=== PATIENT | male | born 1985 ===

== ENCOUNTER 2025-06-25 14:14 | Inpatient (IN) | payer MEDICAID, OTHER, SELFPAY ==
--- OUTSIDE RECORDS SUMMARY | 2025-06-25 03:47 | XMS_ITS | Encounter Summary ---
Author Organization [facility] Address [address] [place] [id number] Care Team Providers Care Loan Processing Supervisor Name Role Phone Pcp, No Primary Care Provider Unavailabl e Reason for Visit * Reason Comments Psychiatric Evaluation Encounter Details Date Type Department Care Team (Latest Contact Info) Description 06/25/2025 3:47 AM EDT - 06/25/2025 12:10 PM EDT Hospital Encounter [address] [id number] Deyvi Cifuentes MD [address] [place] [address] [phone] Suicidal ideations Discharge Disposition: Psychiatric Hospital other than [facility] Social History Tobacco Use Types Packs/Day Years Used Date Smoking Tobacco: Every Day Cigarettes Smokeless Tobacco: Never Tobacco Cessation:Ready to Q uit: Not Asked; Counseling Given: Not Answered Sex and Gender Information Value Date Recorded Sex Assigned at Male 06/25/2025 3:39 AM EDT Legal Sex Male 3:23 AM EDT Gender Identity Male 06/25/2025 3:39 AM EDT Sexual Orientation Straight 06/25/2025 3 :43 AM EDT Travel History Travel Start Travel End [place] 05/25/2025 06/25/2025 documented as of this encounter Last Filed Vital Signs Vital Sign Reading Time Taken Comments Blood Pressure 120/77 06/25/2025 10:44 AM EDT Pulse 91 06/25/2025 10:44 AM EDT Temperature 36.7 C (98 F) 06/25/2025 3:26 AM EDT Respiratory Rate 18 06/25/2025 6:06 AM EDT Oxygen Saturation 95% 06/25/2025 10:44 AM EDT Inhaled Oxygen Concentration - - Weight 81.6 kg (180 lb) 06/25/2025 6:06 AM EDT Height 172.7 cm (5' 8 ) 06/25/2025 6:06 AM EDT Body Mass Index 27.37 06/25/2025 6:06 AM EDT documented in this encounter Progress Notes * Simin Teixeira - 06/25/2025 10:54 AM EDT [facility] Follow Up Note Patient Name: Nikita Corbin Age: 39 y.o. Reason for Note: Faxed EKG over to Mikey @ [phone] Plan: 06/25/2025 @ 10:54 AM Simin Teixeira * Simin Teixeira - 06/25/2025 10:18 AM EDT PSYCHIATRIC FACILITY TRANSFER NOTIFICATION FORM Type of Placement: Voluntary NO Involuntary YES Section 12 Needed YES Inpatient Level of Care (check one): X? Inpatient Psych ?Med/Psych ?Cori-Psych ? Inpatient Dual Diagnosis ?ACCS ? [facility] ?Other Facility Name: [facility] Address: [address] [place] [address] Blemish Remover: ADMISSIONS Accepting MD: ASTRID JOLLEY Date/Time of Arrival: 06/25/25 2:00PM PATIENT Notified: ?X Yes: ? No (explain): Family / Legal Guardian / Health Care Proxy Notified: ? Yes (name of person/s contacted): X? No (explain): ANGELA signed with accepting facility ([facility] patients ONLY): ? Yes ([facility] Patient) ?x No (NOT a [facility] Patient) Additional Information / Instruction SIMIN TEIXEIRA NO AUTH NEEDED [facility] FACILITY WILL CALL TO DO N2N documented in this encounter Consult Notes * AAMIR Sharp - 06/25/2025 5:45 AM EDTAssociated Order(s): CONSULT TO MENTAL HEALTH ASSESSMENT Referred by: ED physician Chief Complaint (Reason for visit): psychiatric assessment Intervention Started: 4:30 am Intervention Ended: 4:50 am Telehealth: Yes If yes, The patient was educated on the option to have a visit via audio and video. The patient requested to have a visit and consented to the service. I then evaluated the patient via audio and video using [employer], and the following findings are documented throughout this note. Patient consents to telehealth: Yes Start time: 4:30 am End time: 4:50 am Patient location: [facility] Provider location: remote A consult was placed to assess for SI. Chart was reviewed and the patient was identified by name and . Reviewed confidentiality and limits to confidentiality prior to evaluation. Plan Disposition plan: Involuntary inpatient psychiatric treatment Psychosocial History Nikita Corbin is a 39 y.o. male who presented to the ED For SI, unknown to social work. Marine Service Station Attendant met with pt at bedside, identified pt by name and . Pt reports that he is suicidal, depressed, hopeless, not motivated, difficulty getting out of bed to complete tasks. He reports that he recently moved from [place] to [place] for work, when asked what he does for work, pt reported insurance. He reports having a plan to complete suicide but did not disclose. He reports past hx of suicide attempt, previous inpatient psychiatric admission. He denied HI/AH/VH, reports he last took his psychiatric medications 1 week ago, does not have any outpt. Mental health providers in [place]. He reports poor sleep, good appetite, anxious, chest tightness, panic attacks. Positive for: SI, depression, anxiety, sleep change, hopeless Negative for: naveed, psychosis, panic, delusions, appetite change, homicidal ideation, and thought disorder Collateral contacts: No collateral contacted Depression Screening PHQ-9 [Not at all (0) Several days (1) More than half the days (2) Nearly every day (3)] Little interest or pleasure in doing things: 3 Feeling down, depressed, or hopeless: 3 Trouble falling or staying asleep, or sleeping too much: 3 Feeling tired or having little energy: 0 Poor appetite or overeatin Feeling bad about yourself - or that you are a failure or have let yourself or your family down: 0 Trouble concentrating on things, such as reading the newspaper or watching television: 1 Moving or speaking so slowly that other people could have noticed. Or the opposite - being so fidgety or restless that you have been moving around a lot more than usual: 0 Thoughts that you would be better off , or of hurting yourself in some way: 3 PHQ-9 Total Score: 13 0 - 4: None to Minimal Depression 5 - 9: Mild Depression 10 - 14: Moderate Depression 15 - 19: Moderately Severe Depression 20 - 27: Severe Depression Anxiety Screening AYLEEN 7 Over the last 2 weeks, how often have you been bothered by the following problems? [Not at all (0) Several days (1) More than half the days (2) Nearly every day (3)] Feeling nervous, anxious or on edge 3 Not being able to stop or control worrying 0 Worrying too much about different things 0 Trouble relaxing 0 Being so restless that it is hard to sit still 0 Becoming easily annoyed or irritable 0 Feeling afraid as if something awful might happen 0 AYLEEN-7 Total Score: 3 0 - 4: None to Minimal Anxiety 5 - 9: Mild Anxiety 10 - 14: Moderate Anxiety 15 - 21: Severe Anxiety Past Psychiatric History Current treatment providers: No History of inpatient psychiatric hospitalizations: Yes History of suicide attempts/self-injurious behavior: Yes History of violence: No Access to weapons: No History of post- depression No Substance Use History and Assessment Denied substance use Family Psychiatric History: noncontributory Developmental/Social History Marital status: single Living arrangements: alone Support system: family Employment status: employed Source of income: employment Education level: unknown Healthcare access/barriers: denies ADLS: independent IADLS: independent HCP: No Guardian: No Legal history:No history:No Trauma history: No Mental Status Exam Appearance: alert, in no acute distress, and age appropriate well appearing, well-hydrated, well nourished Behavior: guarded Consciousness/Orientation: oriented to time, place, person, and reason for visit Eye contact: mainly direct Motor activity: no psychomotor agitation Mood: depressed Affect: full-range and appropriate Speechnormal rate, tone and rhythm and coherent speech Thought process: normal, linear, and logical Thought content: suicidal Perception (hallucinations): denies Delusions: none reported Suicidal/Homicidal Ideation: suicidal ideation with plan and intent, no homicidal ideation Concentration/attention: good Memory: recent and remote memory intact Intelligence/fund of knowledge: appears average Impulsivity: good impulse control Reliability: fair historian Insight: good Judgment: unimpaired Psychological Risk Assessment Current Risk Behavior: Description: Suicidal Thoughts/Ideation/plan/means/intent:Description: Ideation, Plan, Means, and Intent History of Risk Behavior or Harmful Acts to Self or Others: Yes Risk and protective factors:hx of suicide attempt Impression/Formulation Pt is a 39yo male who presented to the ED with report of SI. Pt endorsed depression, SI with plan; involuntary inpatient psychiatric treatment recommended. Diagnosis: F33.2 Major Depressive Disorder, Severe Therapy plan: Target symptoms: depression Goals of therapy: mood stabilization Patients capacity to participate and benefit from therapy: capable Estimated duration of treatment/number of sessions: inpatient psychiatric tx Treatment is expected to improve the health status and/or functioning of the patient. Yes Does pt meet CCS level or care, and if not why?:N/A; SI with plan AAMIR Sharp 06/25/2025 @ 5:45 AM documented in this encounter ED Notes * Umu Fu RN - 06/25/2025 12:08 PM EDT Report to [facility] for transport of thIS patient to [place]. Patient exits on stretcher for discharge * Umu Fu RN - 06/25/2025 11:47 AM EDT Nurse to nurse with Natalie from [place] * Umu Fu RN - 06/25/2025 11:31 AM EDT PFS in to see patient * Umu Fu RN - 06/25/2025 10:27 AM EDT electronic lab technician in for EKG * Umu Fu RN - 06/25/2025 10:24 AM EDT PT ACCEPTED TO [facility] FOR 2PM * Umu Fu RN - 06/25/2025 8:31 AM EDT Breakfast provided * Umu Fu RN - 06/25/2025 8:17 AM EDT Patient sleeping * Matheus Davis RN - 06/25/2025 5:42 AM EDT Requesting a snack and something to sleep. * Matheus Davis RN - 06/25/2025 5:15 AM EDT Patient ambulated to [facility] in paper scrubs.patient alert oriented x 4. Stating I'm in pain,my back,my knee . Encouraged patient to give the tylenol he received right before coming onto the unit a chance.encouraged the patch that was ordered but patient declined. Requesting will I be getting my medications and can I have something to eat ? 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 Patient unable to remember his doctors name, number or the medications names.Provided with boxed sandwich and beverage. * Nikki Ambrosio RN - 06/25/2025 4:28 AM EDT SW evaluating pt via Teams * Deyvi Cifuentes MD - 06/25/2025 3:54 AM EDT Service Date: ED Arrival Date 06/25/25 Chief Complaint Chief Complaint Patient presents with Psychiatric Evaluation HPI Pt with depression and suicidal thoughts x 4 days. The history is provided by the patient. Mental Health Problem Presenting symptoms: depression and suicidal thoughts Degree of incapacity (severity): Moderate Onset quality: Gradual Duration: 4 days Timing: Constant Progression: Worsening Chronicity: Recurrent Context: noncompliance and stressful life event Context: not alcohol use, not drug abuse, not medication and not recent medication change Treatment compliance: Most of the time Time since last psychoactive medication taken: 5 days Relieved by: nothing tried Worsened by: nothing tried Ineffective treatments: None tried Associated symptoms: anxiety Associated symptoms: no abdominal pain, no anhedonia, no appetite change, no chest pain, no decreased need for sleep, not distractible, no euphoric mood, no fatigue, no feelings of worthlessness, no headaches, no hypersomnia, no hyperventilation, no insomnia, no irritability, no poor judgment, no psychomotor retardation, no school problems and no weight change Risk factors: hx of mental illness Risk factors: no family hx of mental illness, no family violence, no hx of suicide attempts, no neurological disease and no recent psychiatric admission ROS Review of Systems Constitutional: Negative for appetite change, fatigue and irritability. Cardiovascular: Negative for chest pain. Gastrointestinal: Negative for abdominal pain. Neurological: Negative for headaches. Psychiatric/Behavioral: Positive for suicidal ideas. The patient is nervous/anxious. The patient does not have insomnia. All other systems reviewed and are negative. Past History Past Medical History: Diagnosis Date Depression GERD (gastroesophageal reflux disease) Narcolepsy PTSD (post-traumatic stress disorder) Past Surgical History: Procedure Laterality Date NO PAST SURGERIES History reviewed. No pertinent family history. Social History[1] Physical Exam Triage Vitals BP 06/25/25 0335 120/79 Heart Rate 06/25/25 0326 77 Resp 06/25/25 0326 18 Temp 06/25/25 0326 98 ??F (36.7 ??C) Temp src 06/25/25 0326 Oral SpO2 06/25/256 100 % Weight -- Height -- There is no height or weight on file to calculate BMI. Height is required to calculate ideal body weight. Physical Exam Vitals and nursing note reviewed. Constitutional: General: He is not in acute distress. Appearance: Normal appearance. He is well-developed and normal weight. He is not ill-appearing, toxic-appearing or diaphoretic. HENT: Head: Normocephalic and atraumatic. Right Ear: External ear normal. Left Ear: External ear normal. Nose: Nose normal. Mouth/Throat: Pharynx: No oropharyngeal exudate. Eyes: General: No scleral icterus. Right eye: No discharge. Left eye: No discharge. Conjunctiva/sclera: Conjunctivae normal. Pupils: Pupils are equal, round, and reactive to light. Neck: Vascular: No JVD. Trachea: No tracheal deviation. Cardiovascular: Rate and Rhythm: Normal rate and regular rhythm. Heart sounds: Normal heart sounds. No murmur heard. No friction rub. No gallop. Pulmonary: Effort: Pulmonary effort is normal. No respiratory distress. Breath sounds: Normal breath sounds. No stridor. No wheezing or rales. Chest: Chest wall: No tenderness. Abdominal: General: Bowel sounds are normal. There is no distension. Palpations: Abdomen is soft. There is no mass. Tenderness: There is no abdominal tenderness. There is no guarding. Musculoskeletal: General: No tenderness. Normal range of motion. Cervical back: Normal range of motion and neck supple. Lymphadenopathy: Cervical: No cervical adenopathy. Skin: General: Skin is warm and dry. Coloration: Skin is not pale. Findings: No erythema or rash. Neurological: Mental Status: He is alert and oriented to person, place, and time. Cranial Nerves: No cranial nerve deficit. Motor: No abnormal muscle tone. Psychiatric: Attention and Perception: Attention normal. Mood and Affect: Mood is anxious. Affect is flat. Thought Content: Thought content includes suicidal ideation. Thought content includes suicidal plan. Cognition and Memory: Cognition and memory normal. Judgment: Judgment normal. ED Course Labs reviewed by me: Labs Reviewed CBC AND AUTO DIFFERENTIAL - Abnormal; Notable for the following components: Result Value HGB 13.2 (*) All other components within normal limits COMPREHENSIVE METABOLIC PANEL LIPASE ACETAMINOPHEN LEVEL SALICYLATE LEVEL TOXICOLOGY SCREEN, URINE Narrative: The following orders were created for panel order Toxicology screen, urine. Procedure Abnormality Status --------- ------ Toxicology screen, urine[[id number]] Please view results for these tests on the individual orders. TOXICOLOGY SCREEN, URINE (NON FCU) ETHANOL Radiology imaging reviewed by me: No orders to display Procedures No notes on file Progress Medical Decision Making Pt with depression and suicidal thoughts x 4 days. Labs are pending. Pt is medically cleared. Ativan PO given. Pt placed in ER Psych Obs. Amount and/or Complexity of Data Reviewed Labs: ordered. Substance use disorder evaluation (SUDE): Due to the need for emergent medical care, the SUDE will need to be deferred until the patient is medically stabilized. Based on my history, physical examination and initial ED course, the patient is now medically clearbut his behavioral condition continues to be unstable and requires further observation to help determine final disposition. Plan will be to monitor for significant changes in medical and psychiatric status, observe for and treat agitation, psychosis, or withdrawal symptoms, coordinate care with social work team, and ensure patient safety. Clinical Impressions: Clinical Impressions: as of 06/25/25 0357 Suicidal ideations Care Transferred: Disposition Observation [1] Social History Socioeconomic History Marital status: Tobacco Use Smoking status: Every Day Types: Cigarettes Smokeless tobacco: Never Vaping Use Vaping status: Never Used Deyvi Cifuentes MD 06/25/25 0358 * Jaguar Emerson RN - 06/25/2025 3:45 AM EDT Pt wanded by public safety and escorted to [facility] * Jaguar Emerson RN - 06/25/2025 3:35 AM EDT Pt made aware of policy / procedure and pt agreeable and voluntarily changed into paper scrubs * Jaguar Emerson RN - 06/25/2025 3:26 AM EDT Pt arrives stating is suicidal , states has not had his meds for days , states recently relocated from [place] and has no PCP here , pt states has a plan but will not elaborate documented in this encounter Miscellaneous Notes * ED Procedure Note - Elliot Becker DO - 06/25/2025 11:19 AM EDTAssociated Order(s): EKG electrocardiogram EKG electrocardiogram Date/Time: 06/25/2025 11:19 AM Performed by: Elliot Becker DO Authorized by: JOANN Sears Measurements: BPM: 80 Findings: Rate: normal Rhythm: Sinus rhythm QRS axis: normal Normal intervals noted Conduction: normal ST Segments: normal T Waves: non-specific changes T inversion: inferior Clinical impression:non-specific ECG Interpreted by ED physician Elliot Becker DO 06/25/25 1120 documented in this encounter Plan of Treatment Not on file documented as of this encounter Procedures Procedure Name Priority Date/Time Associated Diagnosis Comments ECG 12-LEAD STAT 06/25/2025 11:19 AM EDT TOXICOLOGY SCREEN, URINE (NON FCU) STAT 06/25/2025 4:04 AM EDT TOXICOLOGY SCREEN, URINE STAT 06/25/2025 4:04 AM EDT CBC AND AUTO DIFFERENTIAL STAT 06/25/2025 3:42 AM EDT LIPASE STAT 06/25/2025 3:42 AM EDT ETHANOL STAT 06/25/2025 3:42 AM EDT ACETAMINOPHEN LEVEL STAT 06/25/2025 3 :42 AM EDT SALICYLATE LEVEL STAT 06/25/2025 3:42 AM EDT COMPREHENSIVE METABOLIC PANEL STAT 06/25/2025 3:42 AM EDT documented in this encounter Results * ECG 12-LEAD (06/25/2025 11:19 AM EDT) Elliot De La Rosa DO - 06/25/2025 11:19 AM EDT Elliot Becker DO 06/25/2025 11:20 AM EKG electrocardiogram Date/Time: 06/25/2025 11:19 AM Performed by: Elliot Becker DO Authorized by: JOANN Sears Measurements: BPM: 80 Findings: Rate: normal Rhythm: Sinus rhythm QRS axis: normal Normal intervals noted Conduction: normal ST Segments: normal T Waves: non-specific changes T inversion: inferior Clinical impression:non-specific ECG Interpreted by ED physician Bk DAVID ECG ORDERABLES Final Result * (ABNORMAL) Toxicology screen, urine (06/25/2025 4:04 AM EDT) Amphetamine Qualitative, Ur None Detected None Detected 06/25/2025 4:32 AM EDT [facility] Barbiturates Qualitative, Ur None Detected None Detected 06/25/2025 4:32 AM EDT [facility] Benzodiazepines Qualitative, Ur Detected(A) None Detected 06/25/2025 4:32 AM EDT [facility] Methadone Qualitative, Ur None Detected None Detected 06/25/2025 4:32 AM EDT [facility] Opiates Qualitative, Ur None Detected None Detected 06/25/2025 4:32 AM EDT [facility] Cannabinoids Qualitative, Ur None Detected None Detected 06/25/2025 4:32 AM EDT [facility] Cocaine Qualitative, Ur None Detected None Detected 06/25/2025 4:32 AM EDT [facility] Oxycodone Qualitative Urine None Detected None Detected 06/25/2025 4:32 AM EDT [facility] Buprenorphine Qualitative Urine None Detected None Detected 06/25/2025 4:32 AM EDT [facility] Fentanyl Qualitative, Ur None Detected None Detected 06/25/2025 4:32 AM EDT [facility] Creatinine, Urine >245.0 20.0 - 400.0 mg/dL 06/25/2025 4:32 AM EDT [facility] Urine Collection / Unknown 06/25/2025 4:04 AM EDT 06/25/2025 4:08 AM EDT Narrative [facility] - 06/25/2025 4:32 AM EDT This urine immunoassay drug method is for medical SCREENING only and should not be used for non-medical (employment,legal) purposes. The test result(s) may be affected by dietary and over the counter medications. Negative cut-offs for these tests are set to detect DRUG ABUSE. Therapeutic levels of these drugs may not be detected. (The negative cut-offs for the drug classes are: Cocaine, Methadone, Opiates 300 ng/ml; Barbituates, Benzodiazepines 200 ng/ml; Amphetamines 1000 ng/ml; Cannabinoids 50 ng/ml; Buprenorphine 5 ng/ml; Oxycodone 100 ng/ml; Fentanyl 1 ng/ml). As this is a screening methodology, any positive results are UNCONFIRMED. Confirmation of positive results may be requested from the laboratory within 5 days. All test results should be interpreted in context of the patient's clinical condition. Deyvi Cifuentes MD URINE ORDERABLES Final Result [facility] [address] [place] [id number] * Ethanol (06/25/2025 3:42 AM EDT) Ethanol Lvl <3 <10 mg/dL 06/25/2025 4:31 AM EDT [facility] Blood Venipuncture / Unknown 06/25/2025 3:42 AM EDT 06/25/2025 3:44 AM EDT Deyvi Cifuentes MD LAB BLOOD ORDERABLES Final Resul t Performing Organization Address City/[facility]/ZIP Co de Phone Number [facility] [address] [place] [phone] * Salicylate level (06/25/2025 3:42 AM EDT) Salicylate <3.0 <30.0 mg/dL 06/25/2025 4:31 AM EDT [facility] Blood Venipuncture / Unknown 06/25/2025 3:42 AM EDT 06/25/2025 3:44 AM EDT Deyvi Cifuentes MD LAB BLOOD ORDERABLES Final Resul t Performing Organization Address [facility] Co de Phone Number [facility] [address] [place] [phone] * (ABNORMAL) Acetaminophen level (06/25/2025 3:42 AM EDT) Acetaminophen Level <2(L) 10 - 20 ug/mL 06/25/2025 4:31 AM EDT [facility] Blood Venipuncture / Unknown 06/25/2025 3:42 AM EDT 06/25/2025 3:44 AM EDT us Deyvi Cifuentes MD LAB BLOOD ORDERABLES Final Resul t Performing Organization Address [facility]/ZIP Co de Phone Number [facility] [address] [place] [phone] * Lipase (06/25/2025 3:42 AM EDT) Lipase 37 12 - 53 U/L 06/25/2025 4:10 AM EDT [facility] Blood Venipuncture / Unknown 06/25/2025 3:42 AM EDT 06/25/2025 3:44 AM EDT us Deyvi Cifuentes MD LAB BLOOD ORDERABLES Final Resul t [facility] [address] [place] [address] * (ABNORMAL) Comprehensive metabolic panel (06/25/2025 3:42 AM EDT) Sodium 141 136 - 145 mEq/L 06/25/2025 4:31 AM [facility] Potassium 4.0 3.5 - 5.1 mEq/L 06/25/2025 4:31 AM [facility] Chloride 107 98 - 109 mEq/L 06/25/2025 4:31 AM [facility] CO2 26 20 - 31 mEq/L 06/25/2025 4:31 AM [facility] Anion Gap 8 4 - 15 mEq/L 06/25/2025 4:31 AM [facility] Glucose 65(L) 70 - 100 mg/dL 06/25/2025 4:31 AM [facility] Creatinine 1.26(H) 0.60 - 1.10 mg/dL 06/25/2025 4:31 AM [facility] eGFR (Male) >60 60 - 115 mL/min 06/25/2025 4:31 AM [facility] BUN 14 9 - 23 mg/dL 06/25/2025 4:31 AM [facility] Calcium 9.4 8.3 - 10.6 mg/dL 06/25/2025 4:31 AM [facility] Total Protein 7.6 5.7 - 8.2 g/dL 06/25/2025 4:31 AM [facility] Albumin 5.0(H) 3.2 - 4.8 g/dL 06/25/2025 4:31 AM [facility] A/G Ratio 1.9 1.0 - 2.3 06/25/2025 4:31 AM [facility] LABORATORY Total Bilirubin 0.8 0.2 - 1.0 mg/dL 06/25/2025 4:31 AM [facility] AST 30 13 - 40 U/L 06/25/2025 4:31 AM [facility] Alkaline Phosphatase 68 46 - 116 IU/L 06/25/2025 4:31 AM EDT [facility] ALT 31 7 - 40 U/L 06/25/2025 4:31 AM EDT [facility] Blood Venipuncture / Unknown 06/25/2025 3:42 AM EDT 06/25/2025 3:44 AM EDT [facility] LABORATORY - 06/25/2025 4:31 AM EDT Calculation based on the Chronic Kidney Disease Epidemiology Collaboration (CKD- EPI) equation refit without adjustment for race. us Deyvi Cifuentes MD LAB BLOOD ORDERABLES Final Resul t [facility] [address] [place] [address] * (ABNORMAL) CBC and Auto Differential (06/25/2025 3:42 AM EDT) WBC 11.2 4.8 - 11.2 10*3/ L 06/25/2025 3:47 AM T [facility] RBC 4.22 4.00 - 5.90 10*6/ L 06/25/2025 3:47 AM [facility] HGB 13.2(L) 14.0 - 17.2 g/dL 06/25/2025 3:47 AM [facility] HCT 41.0 40.0 - 52.0 % 06/25/2025 3:47 AM T [facility] MCV 97.2 82.0 - 98.0 fL 06/25/2025 3:47 AM T [facility] MCH 31.3 27.0 - 35.0 pg 06/25/2025 3:47 AM T [facility] MCHC 32.2 32.0 - 37.0 g/dL 06/25/2025 3:47 AM [facility] RDW 12.5 12.0 - 15.0 % 06/25/2025 3:47 AM EDT [facility] PLT 257 150 - 400 10*3/ L 06/25/2025 3:47 AM [facility] MPV 10.1 7.0 - 14.0 fL 06/25/2025 3:47 AM [facility] Neut % 62.4 45.0 - 85.0 % 06/25/2025 3:47 AM [facility] Immature Granulocytes % 0.4 0 - 5.0 % 06/25/2025 3:47 AM [facility] Lymph % 25.1 15.0 - 45.0 % 06/25/2025 3:47 AM [facility] Meigs % 7.3 0.0 - 12.0 % 06/25/2025 3:47 AM [facility] Eos % 3.7 0.0 - 7.0 % 06/25/2025 3:47 AM [facility] Baso % 1.1 0.0 - 3.0 % 06/25/2025 3:47 AM [facility] NRBC% 0 0 /100 WBC /100 WBC 06/25/2025 3:47 AM [facility] Neut # 7.0 2.2 - 9.5 10*3/ L 06/25/2025 3:47 AM [facility] Immature Granulocytes Absolute 0.04 0.00 - 0.56 10*3/ L 06/25/2025 3:47 AM [facility] Lym # 2.8 0.7 - 5.0 10*3/ L 06/25/2025 3:47 AM [facility] Meigs # 0.8 0.0 - 1.3 10*3/ L 06/25/2025 3:47 AM [facility] Eos # 0.4 0.0 - 0.4 10*3/ L 06/25/2025 3:47 AM [facility] Baso # 0.1 0.0 - 0.3 10*3/ L 06/25/2025 3:47 AM [facility] Blood Venipuncture / Unknown 06/25/2025 3:42 AM EDT 06/25/2025 3:44 AM EDT us Deyvi Cifuentes MD LAB BLOOD ORDERABLES Final Resul t [facility] [address] [place] [address] documented in this encounter Visit Diagnoses Diagnosis Suicidal ideations- Primary Suicidal ideations documented in this encounter Admitting Diagnoses Diagnosis Suicidal ideations documented in this encounter Administered Medications Inactive Administered Medications - up to 3 most recent administrations Medication Order MAR Action Action Date Dose Rate Site acetaminophen (TYLENOL EXTRA STRENGTH) tablet 1,000 mg 1,000 mg, Oral, Once, On Mon06/25/25 at 0504, For 1 dose, Adult MAX: NOT to exceed 4 grams of ACETAMINOPHEN per 24 hrs from ALL sources. Given 06/25/2025 5:09 AM EDT 1,000 mg LORazepam (ATIVAN) tablet 1 mg 1 mg, Oral, Once, On Mon06/25/25 at 0440, For 1 dose Given 06/25/2025 4:49 AM EDT 1 mg LORazepam (ATIVAN) tablet 1 mg 1 mg, Oral, Once, On Mon06/25/25 at 1116, For 1 dose Given 06/25/2025 11:25 AM EDT 1 mg documented in this encounter Active and Recently Administered Medications Times are shown in EDT. Scheduled Medication Order 06/23/2025 06/24/2025 06/25/2025 acetaminophen (TYLENOL EXTRA STRENGTH) tablet 1,000 mg (COMPLETED) 1,000 mg, Oral, Once, On Mon06/25/25 at 0504, For 1 dose, Adult MAX: NOT to exceed 4 grams of ACETAMINOPHEN per 24 hrs from ALL sources. 0509 (Given - Provid er: Nikki Ambrosio RN) lidocaine 4 % (ASPERCREME LIDOCAINE) patch 1 patch 1 patch, Transdermal, Once, On Mon06/25/25 at 0504, For 1 dose, Apply to back Remove patch(es) after 12 hours 0508 (Not Given - Pr ovider: Nikki Ambrosio RN - Reason: Patient/family refused) LORazepam (ATIVAN) tablet 1 mg (COMPLETED) 1 mg, Oral, Once, On Mon06/25/25 at 0440, For 1 dose 0449 (Given - Provid er: Nikki Ambrosio, QUINCY) LORazepam (ATIVAN) tablet 1 mg (COMPLETED) 1 mg, Oral, Once, On Mon06/25/25 at 1116, For 1 dose 1125 (Given - Provid er: Umu Fu RN) documented in this encounter Care Teams Loan Processing Supervisor Relationship Specialty [place] [id number] PCP - General 06/25/25 documented as of this encounter
[2025-06-25 14:47] VITALS: BP 126/73; PULSE 73; RESP 16; TEMP 36.9; O2SAT 100; BMI 22.0
[2025-06-25] MEDS: Nicotine 21 MG PATCH.TD24 TRANSDERMA (15:34)
--- OUTSIDE RECORDS SUMMARY | 2025-06-25 17:03 | XMS_ITS | Clinical Summary ---
Author Organization [facility] Address [address] [place] [id number] Care Team Providers Care Stick Inserter Name Role Phone Pcp, No Primary Care Provider Unavailabl e Allergies No known active allergies Active Problems Problem Noted Date Diagnosed Date Suicidal ideations 06/25/2025 Encounters Date Type Department Care Team Description 06/25/2025 3:47 AM EDT - 06/25/2025 12:10 PM EDT Hospital Encounter [address] [id number] Deyvi Cifuentes MD Suicidal ideations Discharge Disposition: Psychiatric Hospital other than [facility] 06/25/2025 Travel from Last 3 Months Social History Tobacco Use Types Packs/Day Years Used Date Smoking Tobacco: Every Day Cigarettes Smokeless Tobacco: Never Tobacco Cessation:Ready to Q uit: Not Asked; Counseling Given: Not Answered Sex and Gender Information Value Date Recorded Sex Assigned at Male 06/25/2025 3:39 AM EDT Legal Sex Male 3:23 AM EDT Gender Identity Male 06/25/2025 3:39 AM EDT Sexual Orientation Straight 06/25/2025 3: 43 AM EDT Travel History Travel Start Travel End [place] 05/25/2025 06/25/2025 Last Filed Vital Signs Vital Sign Reading [...] Mass Index 27.37 06/25/2025 6:06 AM EDT Plan of Treatment Health Maintenance Due Date Last Done Comments Annual Physical 1988 Hepatitis B Screening 2003 DTaP,Tdap,and Td Vaccines (1 - Tdap) 2004 Pneumococcal Vaccines 0-49 y rs (includes High Risk) (1 of 2 - PCV) 2004 Cholesterol Screening 2020 COVID-19 Vaccine (1 - 2023-2 5 season) 2025 Influenza Vaccine (#1) 2025 HIB Vaccines Aged Out No longer eligi ble based on patient's age to complete this topic Hepatitis A Vaccine Aged Out No longe r eligible based on patient's age to complete this topic Procedures Procedure Name Priority Date/Time Associated Diagnosis Comments ECG 12-LEAD STAT 06/25/2025 11:19 AM EDT TOXICOLOGY SCREEN, URINE (NON FCU) STAT 06/25/2025 4:04 AM EDT TOXICOLOGY SCREEN, URINE STAT 06/25/2025 4:04 AM EDT ETHANOL STAT 06/25/2025 3:42 AM EDT SALICYLATE LEVEL STAT 06/25/2025 3:42 AM EDT ACETAMINOPHEN LEVEL STAT 06/25/2025 3 :42 AM EDT LIPASE STAT 06/25/2025 3:42 AM EDT COMPREHENSIVE METABOLIC PANEL STAT 06/25/2025 3:42 AM EDT CBC AND AUTO DIFFERENTIAL STAT 06/25/2025 3:42 AM EDT from Last 3 Months Results * ECG 12-LEAD (06/25/2025 11:19 AM EDT) Narrative Elliot Becker DO - 06/25/2025 11:19 AM EDT Elliot Becker DO 06/25/2025 11:20 AM EKG electrocardiogram Date/Time: 06/25/2025 11:19 AM Performed by: Elliot Becker DO Authorized by: JOANN Sears Measurements: BPM: 80 Findings: Rate: normal Rhythm: Sinus rhythm QRS axis: normal Normal intervals noted Conduction: normal ST Segments: normal T Waves: non-specific changes T inversion: inferior Clinical impression:non-specific ECG Interpreted by ED physician us Bk DAVID ECG ORDERABLES Final Result * (ABNORMAL) Toxicology screen, urine (06/25/2025 4:04 AM EDT) Amphetamine Qualitative, Ur None Detected None Detected 06/25/2025 4:32 AM T [facility] Barbiturates Qualitative, Ur None Detected None Detected 06/25/2025 4:32 AM [facility] Benzodiazepines Qualitative, Ur Detected(A) None Detected 06/25/2025 4:32 AM [facility] Methadone Qualitative, Ur None Detected None Detected 06/25/2025 4:32 AM [facility] Opiates Qualitative, Ur None Detected None Detected 06/25/2025 4:32 AM [facility] Cannabinoids Qualitative, Ur None Detected None Detected 06/25/2025 4:32 AM [facility] Cocaine Qualitative, Ur None Detected None Detected 06/25/2025 4:32 AM [facility] Oxycodone Qualitative Urine None Detected None Detected 06/25/2025 4:32 AM [facility] Buprenorphine Qualitative Urine None Detected None Detected 06/25/2025 4:32 AM [facility] Fentanyl Qualitative, Ur None Detected None Detected 06/25/2025 4:32 AM [facility] Creatinine, Urine >245.0 20.0 - 400.0 mg/dL 06/25/2025 4:32 AM [facility] Urine Collection / Unknown 06/25/2025 4:04 AM EDT 06/25/2025 4:08 AM EDT [facility]AT[facility] - 06/25/2025 4:32 AM EDT This [...] in context of the patient's clinical condition. us Deyvi Cifuentes MD URINE ORDERABLES Final Result [facility] [address] [place] [phone] * (ABNORMAL) CBC and Auto Differential (06/25/2025 3:42 AM EDT) WBC 11.2 4.8 - 11.2 10*3/ L 06/25/2025 3:47 AM EDT [facility] RBC 4.22 4.00 - 5.90 10*6/ L 06/25/2025 3:47 AM T [facility] HGB 13.2(L) 14.0 - 17.2 g/dL 06/25/2025 3:47 AM EDT [facility] HCT 41.0 40.0 - 52.0 % 06/25/2025 3:47 AM T [facility] MCV 97.2 82.0 - 98.0 fL 06/25/2025 3:47 AM EDT [facility] MCH 31.3 27.0 - 35.0 pg 06/25/2025 3:47 AM EDT [facility] MCHC 32.2 32.0 - 37.0 g/dL 06/25/2025 3:47 AM [facility] RDW 12.5 12.0 - 15.0 % 06/25/2025 3:47 AM [facility] PLT 257 150 - 400 10*3/ L 06/25/2025 3:47 AM [facility] MPV 10.1 7.0 - 14.0 fL 06/25/2025 3:47 AM [facility] Neut % 62.4 45.0 - 85.0 % 06/25/2025 3:47 AM [facility] Immature Granulocytes % 0.4 0 - 5.0 % 06/25/2025 3:47 AM [facility] Lymph % 25.1 15.0 - 45.0 % 06/25/2025 3:47 AM [facility] [place] % 7.3 0.0 - 12.0 % 06/25/2025 3:47 AM [facility] Eos % 3.7 0.0 - 7.0 % 06/25/2025 3:47 AM [facility] Baso % 1.1 0.0 - 3.0 % 06/25/2025 3:47 AM [facility] NRBC% 0 0 /100 WBC /100 WBC 06/25/2025 3:47 AM [facility] Neut # 7.0 2.2 - 9.5 10*3/ L 06/25/2025 3:47 AM [facility] Immature Granulocytes Absolute 0.04 0.00 - 0.56 10*3/ L 06/25/2025 3:47 AM [facility] Lym # 2.8 0.7 - 5.0 10*3/ L 06/25/2025 3:47 AM [facility] [place] # 0.8 0.0 - 1.3 10*3/ L 06/25/2025 3:47 AM [facility] Eos # 0.4 0.0 - 0.4 10*3/ L 06/25/2025 3:47 AM [facility] Baso # 0.1 0.0 - 0.3 10*3/ L 06/25/2025 3:47 AM EDT [facility] Blood Venipuncture / Unknown 06/25/2025 3:42 AM EDT 06/25/2025 3:44 AM EDT us Deyvi Cifuentes MD LAB BLOOD ORDERABLES Final Resul t Performing Organization Address [facility] de Phone Number [facility] [address] [place] [phone] * Lipase (06/25/2025 3:42 AM EDT) Lipase 37 12 - 53 U/L 06/25/2025 4:10 AM EDT [facility] Blood Venipuncture / Unknown 06/25/2025 3:42 AM EDT 06/25/2025 3:44 AM EDT us Deyvi Cifuentes MD LAB BLOOD ORDERABLES Final Resul t Performing Organization Address [facility] Co de Phone Number [facility] [address] [place] [phone] * Ethanol (06/25/2025 3:42 AM EDT) Ethanol Lvl <3 <10 mg/dL 06/25/2025 4:31 AM EDT [facility] Blood Venipuncture / Unknown 06/25/2025 3:42 AM EDT 06/25/2025 3:44 AM EDT us Deyvi Cifuentes MD LAB BLOOD ORDERABLES Final Resul t Performing Organization Address [facility] de Phone Number [facility] [address] [place] [phone] * (ABNORMAL) Acetaminophen level (06/25/2025 3:42 AM EDT) Acetaminophen Level <2(L) 10 - 20 ug/mL 06/25/2025 4:31 AM EDT [facility] Blood Venipuncture / Unknown 06/25/2025 3:42 AM EDT 06/25/2025 3:44 AM EDT us Deyvi Cifuentes MD LAB BLOOD ORDERABLES Final Resul t Performing Organization Address [facility] Co de Phone Number [facility] [address] [place] [phone] * Salicylate level (06/25/2025 3:42 AM EDT) Salicylate <3.0 <30.0 mg/dL 06/25/2025 4:31 AM EDT [facility] Blood Venipuncture / Unknown 06/25/2025 3:42 AM EDT 06/25/2025 3:44 AM EDT Deyvi Cifuentes MD LAB BLOOD ORDERABLES Final Resul t Performing Organization Address [facility] Co de Phone Number [facility] [address] [place] [phone] * (ABNORMAL) Comprehensive metabolic panel (06/25/2025 3:42 AM EDT) Sodium 141 136 - 145 mEq/L 06/25/2025 4:31 AM EDT [facility] Potassium 4.0 3.5 - 5.1 mEq/L 06/25/2025 4:31 AM EDT [facility] Chloride 107 98 - 109 mEq/L 06/25/2025 4:31 AM EDT [facility] CO2 26 20 - 31 mEq/L 06/25/2025 4:31 AM EDT [facility] Anion Gap 8 4 - 15 mEq/L 06/25/2025 4:31 AM EDT [facility] Glucose 65(L) 70 - 100 mg/dL 06/25/2025 4:31 AM EDT [facility] Creatinine 1.26(H) 0.60 - 1.10 mg/dL 06/25/2025 4:31 AM [facility] eGFR (Male) >60 60 - 115 mL/min 06/25/2025 4:31 AM [facility] BUN 14 9 - 23 mg/dL 06/25/2025 4:31 AM [facility] Calcium 9.4 8.3 - 10.6 mg/dL 06/25/2025 4:31 AM [facility] Total Protein 7.6 5.7 - 8.2 g/dL 06/25/2025 4:31 AM [facility] Albumin 5.0(H) 3.2 - 4.8 g/dL 06/25/2025 4:31 AM [facility] A/G Ratio 1.9 1.0 - 2.3 06/25/2025 4:31 AM [facility] Total Bilirubin 0.8 0.2 - 1.0 mg/dL 06/25/2025 4:31 AM [facility] AST 30 13 - 40 U/L 06/25/2025 4:31 AM [facility] Alkaline Phosphatase 68 46 - 116 IU/L 06/25/2025 4:31 AM [facility] ALT 31 7 - 40 U/L 06/25/2025 4:31 AM [facility] Blood Venipuncture / Unknown 06/25/2025 3:42 AM EDT 06/25/2025 3:44 AM EDT [facility] - 06/25/2025 4:31 AM EDT Calculation based on the Chronic Kidney Disease Epidemiology Collaboration (CKD- EPI) equation refit without adjustment for race. us Deyvi Cifuentes MD LAB BLOOD ORDERABLES Final Resul t [facility] [address] [place] [address] from Last 3 Months Care Teams Stick Inserter Relationship Specialty [place] [phone] PCP - General 06/25/25
--- OUTSIDE RECORDS SUMMARY | 2025-06-25 17:03 | XMS_ITS | Encounter Summary ---
Author Organization [facility] Address [address] [place] [address] Care Team Providers Care Telepathist Name Role Phone Pcp, No Primary Care Provider Unavailabl e Encounter Details Date Type Department Care Team (Latest Contact Info) Description 06/25/2025 Travel Social History Tobacco Use Types Packs/Day Years Used Date Smoking Tobacco: Every Day Cigarettes Smokeless Tobacco: Never Sex and Gender Information Value Date Recorded Sex Assigned at Male 06/25/2025 3:39 AM EDT Legal Sex Male 3:23 AM EDT Gender Identity Male 06/25/2025 3:39 AM EDT Sexual Orientation Straight 06/25/2025 3: 43 AM EDT Travel History Travel Start Travel End [place] 05/25/2025 06/25/2025 documented as of this encounter Plan of Treatment Not on file documented as of this encounter Visit Diagnoses Not on filedocumented in this encounter Care Teams Telepathist Relationship Specialty Start Date End Date PcpEmily [phone] PCP - General 06/25/25 documented as of this encounter
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
[2025-06-25] MEDS: Triamcinolone Acet 0.1 % Oint 15 GM TUBE 1 APPL TOPICAL (18:29)
[2025-06-25 19:43] VITALS: BP 134/68; PULSE 73; RESP 16; TEMP 36.3; O2SAT 99
[2025-06-25 22:16] VITALS: BP 134/68; PULSE 73
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
[2025-06-26 08:34] LABS: Alanine Aminotransferase 28 U/L (0-40); Albumin Level 4.6 g/dL (3.5-5.0); Alkaline Phosphatase 73 U/L (39-117); Anion Gap 11 (12-20); Aspartate Amino Transferase 32 U/L (5-37); Blood Urea Nitrogen 24 mg/dL (9-16); Calcium 9.4 mg/dL (8.4-10.2); Carbon Dioxide 27 mmol/L (22-29); Chloride 109 mmol/L (96-108); Cholesterol 192 mg/dL (<200); Creatinine Clr Calc Pharmacy 82.9; Estimated Glomerular Filt Rate > 60; HDL Cholesterol 54 mg/dL (>40); Potassium 4.4 mmol/L (3.3-5.1); Sodium 143 mmol/L (135-145); Total Protein 7.3 g/dL (6.5-8.0); Triglycerides 112 mg/dL (<150)
[2025-06-26 08:50] LABS: Free T4 (Free Thyroxine) 0.83 ng/dL (0.71-1.85); Thyroid Stimulating Hormone 0.90 uIU/mL (0.32-4.0)
[2025-06-26 08:51] VITALS: BP 133/83; PULSE 74; RESP 16; TEMP 36.9; O2SAT 100
[2025-06-26] MEDS: Venlafaxine HCl ER 75 MG CAP.ER.24H PO (08:55)
--- NOTE | 2025-06-26 09:19 | HO.PSYADMNOT ---
HPI Date of Service: 06/26/25 Chief Complaint: Major depressive disorder, severe Sources of Information: patient interviewed, chart reviewed and crisis/core team assessment reviewed HPI Subjective Notes: Beverly Warning and Conditional Voluntary Healthcare Proxy: No Guardianship: No Medical Problems Affecting Mental Status: No Narrative: Meet with patient on 06/25/25 and on 06/26/25 for psychiatric evaluation. Patient sent to [facility] from [facility] ED. Per crisis note: Patient is a 39 years old male with history PMH of PTSD, MDD panic attack, and medical hx of hypertension, glaucoma, narcolepsy, hyperlipidemia, low testosterone and social anxiety who presented to the ED for SI, depression. He feels hopeless and not motivated, difficulty getting out of bed to complete tests. Patient recently moved to [place] from [place] a work. Reported that he works for [employer]. Reports having SI with plan to commit suicide but did not disclosed. History of suicide attempts, history of previous inpatient psychiatric admission. Patient has not taking medication for about a week, not have outpatient providers in the area. Reports poor sleep, good appetite, anxious, chest tightness, panic attacks. On M5: Patient reports reason for this admission is I recently relocated here for work. I see provider back home prior to come here, and have not taking medication for 2 weeks . Patient also reports someone close to me just 2 weeks ago -a co-worker. Also has a lot of things happened at once. He also reports recently broke up with a girlfriend for about a month. Combination of not taking medication, moving to new environment, lost friends that he close to, and broke up with a girlfriend combined to make he feels suicidal. Reports that he has been staying at hotel since moving here to [place]. Complete college, denies legal issues, he works for [employer] which has new offices open in [place]. Reports mom has bipolar. She also having history of abusing to her prescription for pain and benzo. Denies trauma history. He has outpatient provider and PCP back in [place], but never has therapist. History of admission in 2020 when he attempted commit suicide due to increasing stress. At that time he also received ECTs treatment about 6 sessions. Reports he step-down from inpatient level of care to [facility] in the same year. Denies detox history. He reports feeling hopeless, suicidal thoughts comes and go, denies at the assessment time but he was suicidal in the morning with plan to overdose on Tylenol. Denies SIB/HI/AVH. Reports history of suicidal thoughts when he was drinking, reports wants suicide attempts in 2020 by cutting himself. Reports he never has a good sleep, appetite is fine, mood is sad and grieving . Reports increase in depression and anxiety really bad lately rated them 10/10. Patient has good knowledge about his own medications, however not able to confirm. Denies substance use issue. He smoked half pack per day. Denies marijuana use. Denies heroin, cocaine or fentanyl use. Social drinking, but sometimes been up to 6-12 beers. No withdrawal symptoms. History, of hypertension, glaucoma, narcolepsy, hyperlipidemia. Per hospitalist, patient also having history of low testosterone which affects his depression when the level is low. Patient is depressed, sad, congruent mood and affect, hopeless, speech is WNL, normal volume and rate. Do not appear to be psychotic. Do not make any delusional or paranoid statements. Judgment is poor, insight is fair. Not compliant with medications, increase in depression and anxiety with suicidal thoughts. Not having provider in [place] as he recently moved from [place]. Work and housing are not situated. Thought process is organized and within normal limit. No active SI. No SIB/HI/AVH. Treatment focused, goal-directed, he wants to get stable back on her met his medications and cope with grieving/lost. Past Psychiatric History: [facility] admission in 2020 followed by suicide attempt. ECT treatment in 2020 Hx of SI. Hx of PHPx1 in 2020. No hx of respite or detox. Medication trial: Effexor. Medical Evaluation Reviewed: Hospitalist Suleiman Pending Patient seen by hospitalist [facility] Medical History (Updated 06/26/25 @ 12:51 by Adelia Sosa NP) HLD (hyperlipidemia) Narrative: HLD Glaucoma Low testoterone. Narcolepsy. Family History: Mom has Bipolar and overused own prescribtion on Pain meds and BZD. Denies other family member of mental health or substance use. No family suicide attempts Social History: , no children College level work for [employer]. No legal issues. Recently move from [place] to [place]. Substance History: Denies current issues. Smoke 1/2 PPD, No MJ/GEGE/Crack, Heroin or FEN. Sometimes binge drinking up to 12 beers. Trauma History: Denies Diagnostics Vital Signs (24Hr): Vital Signs - 24 hr 06/25/25 14:47 06/25/25 19:43 06/25/25 22:16 Temperature 98.4 F 97.3 F Pulse Rate 73 73 73 Respiratory Rate 16 16 Blood Pressure 126/73 134/68 134/68 Pulse Oximetry 100 99 Oxygen Delivery Method Room Air Room Air 06/26/25 08:51 Temperature 98.4 F Pulse Rate 74 Respiratory Rate 16 Blood Pressure 133/83 Pulse Oximetry 100 Oxygen Delivery Method Room Air BMI result Body Mass Index 22.0 Labs 06/26/25 07:49 Labs: Laboratory Results - last 48 hr 06/26/25 07:49 Sodium 143 Potassium 4.4 Chloride 109 H Carbon Dioxide 27 Anion Gap 11 L BUN 24 H Creatinine 1.11 Estim Creat Clear Calc 82.9 Estimated GFR > 60 Random Glucose 91 Calcium 9.4 Total Bilirubin 0.3 AST 32 ALT 28 Alkaline Phosphatase 73 Total Protein 7.3 Albumin 4.6 Triglycerides 112 Cholesterol 192 LDL Cholesterol, Calc 116 H HDL Cholesterol 54 TSH 0.90 Free T4 0.83 Meds/Allergies Meds Home Medications ?Medication ?Instructions ?Recorded ?Confirmed ?Type alprazolam 1 mg tablet (Xanax) See Rx Instructions .Route .COMPLEX 06/25/25 06/25/25 History atorvastatin 40 mg tablet 40 mg PO BEDTIME 06/25/25 06/25/25 History carvedilol 12.5 mg tablet (Coreg) 12.5 mg PO DAILY 06/25/25 06/25/25 History desvenlafaxine succinate 50 mg 50 mg PO DAILY 06/25/25 06/25/25 History tablet,extended release 24 hr (Pristiq) gabapentin 300 mg capsule 300 mg PO DAILY 06/25/25 06/25/25 History lisdexamfetamine 60 mg capsule 60 mg PO DAILY Narcolepsy 06/25/25 06/25/25 History (Vyvanse) mirtazapine 15 mg tablet (Remeron) 15 mg PO BEDTIME 06/25/25 06/25/25 History pantoprazole 40 mg tablet,delayed 40 mg PO DAILY 06/25/25 06/25/25 History release (Protonix) propranolol 10 mg tablet 10 mg PO BID 06/25/25 06/25/25 History timolol 0.25 % eye drops 1 drp ophthalmic (eye) BID 06/25/25 06/25/25 History tramadol 50 mg tablet 50 mg PO BID PRN Pain, Severe 06/25/25 06/25/25 History Allergies Allergies Allergy/AdvReac Type Severity Reaction Status Date / Time No Known Allergies Allergy Verified 06/25/25 14:40 Mental Status Exam Mental Status Exam Narrative: Patient is alert and oriented x4; behavior is cooperative, friendly with mild to moderate depression and anxiety; patient is not in distress; dressed in hospital attire with kempt hair and adequate hygiene; mood is described as sad and grieving and affect congruent; eye contact appropriate; Speech is normal rate, volume and prosody and not pressured; no psychomotor agitation/retardation present; thought process is organized and goal directed; Thought content is WNL but hopeless with passive SI, pertinent to relevant topics and without any delusional content, paranoid ideation or grandiosity; denies any SIB/HI. Denies AH and there is no evidence of perceptual disturbance. Patient's insight fair and judgment impaired. Assessment & Plan Assessment & Plan (1) HTN (hypertension): Status: Acute Code(s): I10 - Essential (primary) hypertension (2) HLD (hyperlipidemia): Status: Acute Code(s): E78.5 - Hyperlipidemia, unspecified (3) Low testosterone in male: Status: Acute Code(s): R79.89 - Other specified abnormal findings of blood chemistry (4) Glaucoma: Status: Acute Code(s): H40.9 - Unspecified glaucoma (5) Narcolepsy: Status: Acute Code(s): G47.419 - Narcolepsy without cataplexy (6) Depressed: Status: Acute Code(s): F32.A - Depression, unspecified (7) PTSD (post-traumatic stress disorder): Status: Acute Code(s): F43.10 - Post-traumatic stress disorder, unspecified (8) Panic attack: Status: Acute Code(s): F41.0 - Panic disorder [episodic paroxysmal anxiety] Plan HPI: Patient is a 39 years old male with history PMH of PTSD, MDD panic attack, and medical hx of hypertension, glaucoma, narcolepsy, hyperlipidemia, low testosterone and social anxiety who presented to the ED for SI, depression. He feels hopeless and not motivated, difficulty getting out of bed to complete tests. Patient recently moved to [place] from [place] a work. 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 Reports having SI with plan to commit suicide but did not disclosed. History of suicide attempts, history of previous inpatient psychiatric admission. Patient has not taking medication for about a week, not have outpatient providers in the area. Reports poor sleep, good appetite, anxious, chest tightness, panic attacks. Formulation/clinical reasoning: continue expressing hopeless feel, sad and depressed, none medication compliant, newly moved to [place] from [place], history of suicide attempts. History of PTSD, panic attack, and depression. Given the above information, patient could benefit in acute care setting/restrictive environment for his own safety, restart on medication, and refer patient to outpatient services in [place] for aftercare. Hospital course: Restart on Meds Pristiq 50mg daily for depression. Xanax 1mg BID PRN for panic attack Hospitalist will start on eye drop for Glaucoma. Gabapentin 300mg daily for nerve pain. Remeron 15mg at HS for imsomnia Vyvance for narcolepsy - substitute for methylphenidate 20 twice a day Coreg 12.5 for hypertension. We will discuss if patient continued to take Effexor or was stopped. Plan Patient on 15 minute checks for safety. Admitted to . CV. Work with treatment team to do collateral. Discuss with hospitalist regarding medical condition. labs. diagnostic as needed Patient educated on: diagnosis, medication risk/benefits, substance abuse and therapeutic strategies Informed Consent: understands Reason for continued inpatient stay Substantial Risk for: med/psych decompensation Statement Statement: I have reviewed the history and physical and performed a pertinent examination on my patient. No changes have occurred unless specified. If the History and Physical was not performed prior to admission, the Hospitalist's service will be consulted for completing the admission physical. Time Spent With Patient Time: Total time managing care of this patient today ____ minutes.
[2025-06-26 09:20] VITALS: BMI 22.6
[2025-06-26 10:33] LABS: Hemoglobin A1C 122.1884 umol/L; Total Hemoglobin (HGBA1C) 3506.5518 umol/L
[2025-06-26] MEDS: Triamcinolone Acet 0.1 % Oint 15 GM TUBE 1 APPL TOPICAL (11:51)
[2025-06-26] MEDS: Nicotine 21 MG PATCH.TD24 TRANSDERMA (11:51)
[2025-06-26 20:00] VITALS: BP 145/94; PULSE 69; RESP 16; TEMP 36.3; O2SAT 100
[2025-06-26 22:01] VITALS: BP 145/94; PULSE 69
[2025-06-27 08:49] VITALS: BP 129/73; PULSE 82; RESP 16; TEMP 36.3; O2SAT 96
[2025-06-27] MEDS: Venlafaxine HCl ER 75 MG CAP.ER.24H PO (08:51)
[2025-06-27] MEDS: Aspirin Enteric Coated 81 MG TABLET.DR PO (08:52)
[2025-06-27] MEDS: Brimonidine Tartrate 0.2% Oph 5 ML BOTTLE 1 DROP EYE-BOTH ×2 (09:16→22:30)
[2025-06-27] MEDS: timoloL maleate 0.5 % Oph Sol 5 ML DRBTL 1 DROP EYE-BOTH ×2 (09:19→22:30)
[2025-06-27] MEDS: Nicotine 21 MG PATCH.TD24 TRANSDERMA (11:33)
--- NOTE | 2025-06-27 16:00 | P.PNPSI_ITS ---
Subjective Subjective Date of Service: 06/27/25 Reason For Visit: Major depressive disorder, severe Subjective Notes: Conditional Voluntary Healthcare Proxy: No Guardianship: No Medical Problems Affecting Mental Status: No Interim History: Medical record and nursing notes reviewed; case discussed during rounds with team/nursing staff, and met with patient for supportive therapy/psychoeducation, as well as medication management. Patient reports he slept well was up 3 times last night. Was medication compliant, denies side effects, denies suicidal thoughts or hallucinations. Reports anxiety high on 04/10, and depression is better. We discussed potential having bipolar behavior history, patient denies any bipolar behavior. Reports that his mom has bipolar so he is aware what is behavior look like. We discussed about anti depression medication, he does not like Effexor even though it was working for him when he take up to 225 mg. He prefer to start the Zoloft as a new antidepressant for anxiety/ panic attack/depression. We discussed side effects and indications. Reviewed lab results with patient with pending level of testosterone. We also discussed potential not taking Xanax as for now he basically has no definite insurance that can cover it. He appeared to be depressed, pacing attempt with helpful as a coping skills, quiet and keeps to himself. Not hyperverbal pressure speech. Medication Compliance: Yes Side effects from medications: No Attending Groups: Intermittent Review of Systems Acute medical concerns: No Medical Review of Systems: unchanged Review of Systems Review of Systems Denies any shortness of breath, chest pain, dizziness, lightheadedness, abdominal pain or discomfort, nausea vomiting or diarrhea. Skin rash on upper body part- was in the lino. Yes all other systems are reviewed and are negative Mental Status Exam Mental Status Exam Narrative: Patient is alert and oriented x4; behavior is cooperative, friendly with mild to moderate depression and anxiety; patient is not in distress; dressed in hospital attire with kempt hair and adequate hygiene; mood is described as anxious but less depressed and affect congruent; eye contact appropriate; Speech is normal rate, volume and prosody and not pressured; no psychomotor agitation/retardation present; thought process is organized and goal directed; Thought content is WNL but hopeless with passive SI, pertinent to relevant topics and without any delusional content, paranoid ideation or grandiosity; denies any SIB/HI. Denies AH and there is no evidence of perceptual disturbance. Patient's insight fair and judgment impaired. Diagnostics Vital Signs (24Hr): Vital Signs - 24 hr 06/26/25 20:00 06/26/25 22:01 06/27/25 08:49 Temperature 97.3 F 97.3 F Pulse Rate 69 69 82 Respiratory Rate 16 16 Blood Pressure 145/94 H 145/94 H 129/73 Pulse Oximetry 100 96 Oxygen Delivery Method Room Air Room Air BMI result Body Mass Index 22.6 Labs 06/26/25 07:49 Labs: Laboratory Results - last 48 hr 06/26/25 07:49 Sodium 143 Potassium 4.4 Chloride 109 H Carbon Dioxide 27 Anion Gap 11 L BUN 24 H Creatinine 1.11 Estim Creat Clear Calc 82.9 Estimated GFR > 60 Random Glucose 91 Estimat Average Glucose 105 Hemoglobin A1c % 5.3 Calcium 9.4 Total Bilirubin 0.3 AST 32 ALT 28 Alkaline Phosphatase 73 Total Protein 7.3 Albumin 4.6 Triglycerides 112 Cholesterol 192 LDL Cholesterol, Calc 116 H HDL Cholesterol 54 TSH 0.90 Free T4 0.83 Medications Medications Current Medications Acetaminophen (Acetaminophen 325 Mg Tablet) 650 mg PO Q6H PRN PRN Reason: Headache/Pain, Scale 1-10 Last Admin: 06/27/25 09:17 Dose: 650 mg Al Hydroxide/Mg Hydroxide (Magnesium Hydrox/Alum Hydrox 30 Ml Oral.Susp) 30 ml PO Q6H PRN PRN Reason: Heartburn/Nausea Alprazolam (Alprazolam 0.5 Mg Tablet) 1 mg PO BID PRN PRN Reason: panic attack Last Admin: 06/27/25 11:39 Dose: 1 mg Aspirin (Aspirin Enteric Coated 81 Mg Tablet.) 81 mg PO DAILY [facility] Last Admin: 06/27/25 08:52 Dose: 81 mg Atorvastatin Calcium (Atorvastatin Calcium 40 Mg Tablet) 40 mg PO BEDTIME [facility] Last Admin: 06/26/25 22:02 Dose: 40 mg Brimonidine Tartrate (Brimonidine Tartrate 0.2% Oph 5 Ml Bottle) 1 drop EYE- BOTH BID [facility] Last Admin: 06/27/25 09:16 Dose: 1 drop Carvedilol (Carvedilol 12.5 Mg Tablet) 12.5 mg PO DAILY [facility]; Protocol Last Admin: 06/27/25 08:51 Dose: 12.5 mg Gabapentin (Gabapentin 300 Mg Capsule) 300 mg PO DAILY [facility] Last Admin: 06/27/25 08:52 Dose: 300 mg Hydroxyzine HCl (Hydroxyzine Hcl 25 Mg Tablet) 25 mg PO Q6H PRN PRN Reason: mild anxiety Ibuprofen (Ibuprofen 600 Mg Tablet) 600 mg PO Q6H PRN PRN Reason: back pain Magnesium Hydroxide (Milk Of Magnesia 30 Ml Oral.Susp) 30 ml PO DAILY PRN PRN Reason: Constipation Methylphenidate HCl (Methylphenidate Hcl 10 Mg Tablet) 20 mg PO BID@0900,1400 [facility] Last Admin: 06/27/25 13:52 Dose: 20 mg Mirtazapine (Mirtazapine 15 Mg Tablet) 15 mg PO BEDTIME [facility] Last Admin: 06/26/25 22:02 Dose: 15 mg Multivitamins/Vitamin C (Multivitamin Tablet) 1 tab PO DAILY [facility] Last Admin: 06/27/25 08:51 Dose: 1 tab Nicotine (Nicotine 21 Mg Patch.Td24) 21 mg TRANSDERMA DAILY PRN PRN Reason: nicotine craving Last Admin: 06/27/25 11:33 Dose: 21 mg Nicotine Polacrilex (Nicotine Polacrilex 2 Mg Gum) 2 mg BUCCAL Q2H PRN PRN Reason: Nicotine Cravings Last Admin: 06/26/25 17:33 Dose: 2 mg Non-Formulary Medication (Lisdexamfetamine [Vyvanse]) 60 mg PO DAILY [facility] On Hold: 06/27/25 09:00 Omeprazole (Omeprazole 20 Mg Capsule.Dr) 20 mg PO DAILY@0630 [facility] Last Admin: 06/27/25 06:56 Dose: 20 mg Ondansetron HCl (Ondansetron Odt 4 Mg Tab.Rapdis) 4 mg TRANSLINGU Q6H PRN PRN Reason: Nausea and Vomiting Propranolol HCl (Propranolol Hcl 10 Mg Tablet) 10 mg PO BID [facility]; Protocol Last Admin: 06/27/25 08:53 Dose: 10 mg Sertraline HCl (Sertraline Hcl 50 Mg Tablet) 50 mg PO DAILY [facility] Timolol Maleate (Timolol Maleate 0.5 % Oph Yoko 5 Ml Drbtl) 1 drop EYE-BOTH BID [facility] Last Admin: 06/27/25 09:19 Dose: 1 drop Trazodone HCl (Trazodone Hcl 50 Mg Tablet) 50 mg PO BEDTIME MRX1 PRN PRN Reason: Insomnia Triamcinolone Acetonide (Triamcinolone Acet 0.1 % Oint 15 Gm Tube) 1 appl TOPICAL BID PRN PRN Reason: rash trunk/rt arm Last Admin: 06/26/25 11:51 Dose: 1 appl Allergies Allergies Allergy/AdvReac Type Severity Reaction Status Date / Time No Known Allergies Allergy Verified 06/25/25 14:40 Assessment & Plan Assessment & Plan (1) HTN (hypertension): Status: Acute Code(s): I10 - Essential (primary) hypertension (2) HLD (hyperlipidemia): Status: Acute Code(s): E78.5 - Hyperlipidemia, unspecified (3) Low testosterone in male: Status: Acute Code(s): R79.89 - Other specified abnormal findings of blood chemistry (4) Glaucoma: Status: Acute Code(s): H40.9 - Unspecified glaucoma (5) Narcolepsy: Status: Acute Code(s): G47.419 - Narcolepsy without cataplexy (6) Depressed: Status: Acute Code(s): F32.A - Depression, unspecified (7) PTSD (post-traumatic stress disorder): Status: Acute Code(s): F43.10 - Post-traumatic stress disorder, unspecified (8) Panic attack: Status: Acute Code(s): F41.0 - Panic disorder [episodic paroxysmal anxiety] Plan HPI: Patient is a 39 years old male with history PMH of PTSD, MDD panic attack, and medical hx of hypertension, glaucoma, narcolepsy, hyperlipidemia, low testosterone and social anxiety who presented to the ED for SI, depression. He feels hopeless and not motivated, difficulty getting out of bed to complete tests. Patient recently moved to [place] from [place] a work. 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 Reports having SI with plan to commit suicide but did not disclosed. History of suicide attempts, history of previous inpatient psychiatric admission. Patient has not taking medication for about a week, not have outpatient providers in the area. Reports poor sleep, good appetite, anxious, chest tightness, panic attacks. Formulation/clinical reasoning: continue expressing hopeless feel, sad and depressed, none medication compliant, newly moved to [place] from [place], history of suicide attempts. History of PTSD, panic attack, and depression. Given the above information, patient could benefit in acute care setting/restrictive environment for his own safety, restart on medication, and refer patient to outpatient services in [place] for aftercare. Hospital course: 06/26/25: Restart on Meds Xanax 1mg BID PRN for panic attack Hospitalist will start on eye drop for Glaucoma. Gabapentin 300mg daily for nerve pain. Remeron 15mg at HS for imsomnia Vyvance for narcolepsy - substitute for methylphenidate 20 twice a day Coreg 12.5 for hypertension. Effexor 75mg daily for depression We will discuss if patient continued to take Effexor or was stopped. 06/27/25: Patient reports he slept well was up 3 times last night. Was medication compliant, denies side effects, denies suicidal thoughts or hallucinations. Reports anxiety high on 04/10, and depression is better. We discussed potential having bipolar behavior history, patient denies any bipolar behavior. Reports that his mom has bipolar so he is aware what is behavior look like. We discussed about anti depression medication, he does not like Effexor even though it was working for him when he take up to 225 mg. He prefer to start the Zoloft as a new antidepressant for anxiety/ panic attack/depression. We discussed side effects and indications. Reviewed lab results with patient with pending level of testosterone. We also discussed potential not taking Xanax as for now he basically has no definite insurance that can cover it. He appeared to be depressed, pacing attempt with helpful as a coping skills, quiet and keeps to himself. Not hyperverbal pressure speech. Discontinue effexor. Start Serialize 50 on 06/28/25. Monitor for side effects. Reviewed lab results. Pending Testosterone level. Add Multivitamin and Omeprazole daily per patient's request. Plan Patient on 15 minute checks for safety. Admitted to . CV. Work with treatment team to do collateral. Discuss with hospitalist regarding medical condition. labs. diagnostic as needed Patient educated on: diagnosis, medication risk/benefits and therapeutic strategies Reason for continued inpatient stay Substantial Risk for: med/psych decompensation Time Spent With Patient Time: Total time managing care of this patient today ____ minutes.
[2025-06-27 20:00] VITALS: BP 131/78; PULSE 88; RESP 18; TEMP 36.4; O2SAT 98
[2025-06-27 22:28] VITALS: BP 138/78; PULSE 88
--- NOTE | 2025-06-28 07:43 | P.PNPSI_ITS ---
Subjective Subjective Date of Service: 06/28/25 Reason For Visit: Major depressive disorder, severe Subjective Notes: Conditional Voluntary Healthcare Proxy: No Guardianship: No Medical Problems Affecting Mental Status: No Interim History: 39 yo with ptsd- walking randolph with headphones, some vigilance or guardedness about who might hear us talking- feels sertraline tolerable took first dose today hoping it will help with all the dep/anxiety he has rickey having- Medication Compliance: Yes Side effects from medications: No Attending Groups: Intermittent Review of Systems Acute medical concerns: No Medical Review of Systems: unchanged Mental Status Exam Mental Status Exam Narrative: wearing judie, furtive eye movement/contact- Patient Orientation: Person, Place, Time and Situation Level of Consciousness: Awake Patient Behavior: Guarded and Anxious Mood Description: Apprehensive Affect Description: Constricted Patient Cognition Impaired: No Ability to Follow Directions: Fair Speech Pattern: Poor Articulation Hallucinations: None Delusions: Grandiose (? some staff wondered - will keep observing for this - pt does not endorse but appears guarded to this provider) Thought Process: Intact and Evasive Thought Content: positive for [place] Depressive Symptoms: Increased Anxiety, Muscle Tension, Thoughts of /Suicide and Difficulty Concentrating Abnormal Motor Activity Signs and Symptoms: Restlessness Judgement: Fair Diagnostics Vital Signs (24Hr): Vital Signs - 24 hr 06/27/25 08:49 06/27/25 20:00 06/27/25 22:28 Temperature 97.3 F 97.6 F Pulse Rate 82 88 88 Respiratory Rate 16 18 Blood Pressure 129/73 131/78 138/78 Pulse Oximetry 96 98 Oxygen Delivery Method Room Air Room Air BMI result Body Mass Index 22.6 Labs 06/26/25 07:49 Labs: Laboratory Results - last 48 hr 06/26/25 07:49 Sodium 143 Potassium 4.4 Chloride 109 H Carbon Dioxide 27 Anion Gap 11 L BUN 24 H Creatinine 1.11 Estim Creat Clear Calc 82.9 Estimated GFR > 60 Random Glucose 91 Estimat Average Glucose 105 Hemoglobin A1c % 5.3 Calcium 9.4 Total Bilirubin 0.3 AST 32 ALT 28 Alkaline Phosphatase 73 Total Protein 7.3 Albumin 4.6 Triglycerides 112 Cholesterol 192 LDL Cholesterol, Calc 116 H HDL Cholesterol 54 TSH 0.90 Free T4 0.83 Medications Medications Current Medications Acetaminophen (Acetaminophen 325 Mg Tablet) 650 mg PO Q6H PRN PRN Reason: Headache/Pain, Scale 1-10 Last Admin: 06/27/25 16:58 Dose: 650 mg Al Hydroxide/Mg Hydroxide (Magnesium Hydrox/Alum Hydrox 30 Ml Oral.Susp) 30 ml PO Q6H PRN PRN Reason: Heartburn/Nausea Alprazolam (Alprazolam 0.5 Mg Tablet) 1 mg PO BID PRN PRN Reason: panic attack Last Admin: 06/27/25 16:59 Dose: 1 mg Aspirin (Aspirin Enteric Coated 81 Mg Tablet.Dr) 81 mg PO DAILY [facility] Last Admin: 06/27/25 08:52 Dose: 81 mg Atorvastatin Calcium (Atorvastatin Calcium 40 Mg Tablet) 40 mg PO BEDTIME [facility] Last Admin: 06/27/25 22:29 Dose: 40 mg Brimonidine Tartrate (Brimonidine Tartrate 0.2% Oph 5 Ml Bottle) 1 drop EYE- BOTH BID [facility] Last Admin: 06/27/25 22:30 Dose: 1 drop Carvedilol (Carvedilol 12.5 Mg Tablet) 12.5 mg PO DAILY [facility]; Protocol Last Admin: 06/27/25 08:51 Dose: 12.5 mg Gabapentin (Gabapentin 300 Mg Capsule) 300 mg PO DAILY [facility] Last Admin: 06/27/25 08:52 Dose: 300 mg Hydroxyzine HCl (Hydroxyzine Hcl 25 Mg Tablet) 25 mg PO Q6H PRN PRN Reason: mild anxiety Ibuprofen (Ibuprofen 600 Mg Tablet) 600 mg PO Q6H PRN PRN Reason: back pain Magnesium Hydroxide (Milk Of Magnesia 30 Ml Oral.Susp) 30 ml PO DAILY PRN PRN Reason: Constipation Methylphenidate HCl (Methylphenidate Hcl 10 Mg Tablet) 20 mg PO BID@0900,1400 [facility] Last Admin: 06/27/25 13:52 Dose: 20 mg Mirtazapine (Mirtazapine 15 Mg Tablet) 15 mg PO BEDTIME [facility] Last Admin: 06/27/25 22:29 Dose: 15 mg Multivitamins/Vitamin C (Multivitamin Tablet) 1 tab PO DAILY [facility] Last Admin: 06/27/25 08:51 Dose: 1 tab Nicotine (Nicotine 21 Mg Patch.Td24) 21 mg TRANSDERMA DAILY PRN PRN Reason: nicotine craving Last Admin: 06/27/25 11:33 Dose: 21 mg Nicotine Polacrilex (Nicotine Polacrilex 2 Mg Gum) 2 mg BUCCAL Q2H PRN PRN Reason: Nicotine Cravings Last Admin: 06/27/25 17:00 Dose: 2 mg Non-Formulary Medication (Lisdexamfetamine [Vyvanse]) 60 mg PO DAILY [facility] On Hold: 06/27/25 09:00 Omeprazole (Omeprazole 20 Mg Capsule.Dr) 20 mg PO DAILY@0630 [facility] Last Admin: 06/28/25 06:30 Dose: 20 mg Ondansetron HCl (Ondansetron Odt 4 Mg Tab.Rapdis) 4 mg TRANSLINGU Q6H PRN PRN Reason: Nausea and Vomiting Propranolol HCl (Propranolol Hcl 10 Mg Tablet) 10 mg PO BID [facility]; Protocol Last Admin: 06/27/25 22:28 Dose: 10 mg Sertraline HCl (Sertraline Hcl 50 Mg Tablet) 50 mg PO DAILY [facility] Timolol Maleate (Timolol Maleate 0.5 % Oph Yoko 5 Ml Drbtl) 1 drop EYE-BOTH BID [facility] Last Admin: 06/27/25 22:30 Dose: 1 drop Trazodone HCl (Trazodone Hcl 50 Mg Tablet) 50 mg PO BEDTIME MRX1 PRN PRN Reason: Insomnia Triamcinolone Acetonide (Triamcinolone Acet 0.1 % Oint 15 Gm Tube) 1 appl TOPICAL BID PRN PRN Reason: rash trunk/rt arm Last Admin: 06/26/25 11:51 Dose: 1 appl Allergies Allergies Allergy/AdvReac Type Severity Reaction Status Date / Time No Known Allergies Allergy Verified 06/25/25 14:40 Assessment & Plan Assessment & Plan (1) HTN (hypertension): Status: Acute Code(s): I10 - Essential (primary) hypertension (2) HLD (hyperlipidemia): Status: Acute Code(s): E78.5 - Hyperlipidemia, unspecified (3) Low testosterone in male: Status: Acute Code(s): R79.89 - Other specified abnormal findings of blood chemistry (4) Glaucoma: Status: Acute Code(s): H40.9 - Unspecified glaucoma (5) Narcolepsy: Status: Acute Code(s): G47.419 - Narcolepsy without cataplexy (6) Depressed: Status: Acute Code(s): F32.A - Depression, unspecified (7) PTSD (post-traumatic stress disorder): Status: Acute Code(s): F43.10 - Post-traumatic stress disorder, unspecified (8) Panic attack: Status: Acute Code(s): F41.0 - Panic disorder [episodic paroxysmal anxiety] Plan HPI: Patient is a 39 years old male with history PMH of PTSD, MDD panic attack, and medical hx of hypertension, glaucoma, narcolepsy, hyperlipidemia, low testosterone and social anxiety who presented to the ED for SI, depression. He feels hopeless and not motivated, difficulty getting out of bed to complete tests. Patient recently moved to [place] from [place] a work. 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 Reports having SI with plan to commit suicide but did not disclosed. History of suicide attempts, history of previous inpatient psychiatric admission. Patient has not taking medication for about a week, not have outpatient providers in the area. Reports poor sleep, good appetite, anxious, chest tightness, panic attacks. Formulation/clinical reasoning: continue expressing hopeless feel, sad and depressed, none medication compliant, newly moved to [place] from [place], history of suicide attempts. History of PTSD, panic attack, and depression. Given the above information, patient could benefit in acute care setting/restrictive environment for his own safety, restart on medication, and refer patient to outpatient services in [place] for aftercare. Hospital course: 06/26/25: Restart on Meds Xanax 1mg BID PRN for panic attack Hospitalist will start on eye drop for Glaucoma. Gabapentin 300mg daily for nerve pain. Remeron 15mg at HS for imsomnia Vyvance for narcolepsy - substitute for methylphenidate 20 twice a day Coreg 12.5 for hypertension. Effexor 75mg daily for depression We will discuss if patient continued to take Effexor or was stopped. 06/27/25: Patient reports he slept well was up 3 times last night. Was medication compliant, denies side effects, denies suicidal thoughts or hallucinations. Reports anxiety high on 04/10, and depression is better. We discussed potential having bipolar behavior history, patient denies any bipolar behavior. Reports that his mom has bipolar so he is aware what is behavior look like. We discussed about anti depression medication, he does not like Effexor even though it was working for him when he take up to 225 mg. He prefer to start the Zoloft as a new antidepressant for anxiety/ panic attack/depression. We discussed side effects and indications. Reviewed lab results with patient with pending level of testosterone. We also discussed potential not taking Xanax as for now he basically has no definite insurance that can cover it. He appeared to be depressed, pacing attempt with helpful as a coping skills, quiet and keeps to himself. Not hyperverbal pressure speech. Discontinue effexor. Start Serialize 50 on 06/28/25. Monitor for side effects. Reviewed lab results. Pending Testosterone level. Add Multivitamin and Omeprazole daily per patient's request. 06/28 hopeful about sertraline trial, appears vigilant Plan Patient on 15 minute checks for safety. Admitted to . CV. Work with treatment team to do collateral. Discuss with hospitalist regarding medical condition. labs. diagnostic as needed Informed Consent: understands Reason for continued inpatient stay Substantial Risk for: rapid decompensation Time Spent With Patient Time: Total time managing care of this patient today ____ minutes.
[2025-06-28 08:00] VITALS: BP 133/88; PULSE 94; RESP 18; TEMP 36.3; O2SAT 97
[2025-06-28] MEDS: Aspirin Enteric Coated 81 MG TABLET.DR PO (08:30)
[2025-06-28] MEDS: Brimonidine Tartrate 0.2% Oph 5 ML BOTTLE 1 DROP EYE-BOTH ×2 (08:30→21:13)
[2025-06-28] MEDS: timoloL maleate 0.5 % Oph Sol 5 ML DRBTL 1 DROP EYE-BOTH ×2 (08:30→21:13)
[2025-06-28] MEDS: Nicotine 14 MG PATCH.TD24 TRANSDERMA (14:14)
[2025-06-28 19:56] VITALS: BP 119/56; PULSE 70; RESP 18; TEMP 36.3; O2SAT 100
[2025-06-28 21:12] VITALS: BP 119/56; PULSE 70
[2025-06-29 08:00] VITALS: BP 113/66; PULSE 55; TEMP 35.8; O2SAT 92
--- NOTE | 2025-06-29 08:14 | P.PNPSI_ITS ---
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; grief and loss- Pt appear vigilant and startled, at times, last pm felt down and says he ate xs Slept- Medication Compliance: Yes Side effects from medications: No Attending Groups: Intermittent Review of Systems Acute medical concerns: No Medical Review of Systems: unchanged Mental Status Exam Mental Status Exam Narrative: sitting on bed, dressed in judie, unshaven , Patient Orientation: Person, Place, Time and Situation Level of Consciousness: Awake Patient Behavior: Guarded, Passive and Poor Eye Contact Mood Description: Apprehensive Affect Description: Blunted Patient Cognition Impaired: No Ability to Follow Directions: Good Speech Pattern: Clear Hallucinations: None Thought Process: Intact and Goal Oriented Thought Content: positive for Perseveration (?ruminating on worries, alot on his mind- ) Depressive Symptoms: Increased Anxiety, Muscle Tension and Unhappiness Judgement: Fair Diagnostics Vital Signs (24Hr): Vital Signs - 24 hr 06/28/25 19:56 06/28/25 21:12 Temperature 97.3 F Pulse Rate 70 70 Respiratory Rate 18 Blood Pressure 119/56 L 119/56 L Pulse Oximetry 100 Oxygen Delivery Method Room Air BMI result Body Mass Index 22.6 Labs 06/26/25 07:49 Medications Medications Current Medications Acetaminophen (Acetaminophen 325 Mg Tablet) 650 mg PO Q6H PRN PRN Reason: Headache/Pain, Scale 1-10 Last Admin: 06/27/25 16:58 Dose: 650 mg Al Hydroxide/Mg Hydroxide (Magnesium Hydrox/Alum Hydrox 30 Ml Oral.Susp) 30 ml PO Q6H PRN PRN Reason: Heartburn/Nausea Alprazolam (Alprazolam 0.5 Mg Tablet) 1 mg PO BID PRN PRN Reason: panic attack Last Admin: 06/28/25 17:36 Dose: 1 mg Aspirin (Aspirin Enteric Coated 81 Mg Tablet.) 81 mg PO DAILY [facility] Last Admin: 06/28/25 08:30 Dose: 81 mg Atorvastatin Calcium (Atorvastatin Calcium 40 Mg Tablet) 40 mg PO BEDTIME [facility] [place] Last Admin: 06/28/25 21:12 Dose: 40 mg Brimonidine Tartrate (Brimonidine Tartrate 0.2% Oph 5 Ml Bottle) 1 drop EYE- BOTH BID [facility] [place] Last Admin: 06/28/25 21:13 Dose: 1 drop Carvedilol (Carvedilol 12.5 Mg Tablet) 12.5 mg PO DAILY [facility] [place]; Protocol Last Admin: 06/28/25 08:29 Dose: 12.5 mg Gabapentin (Gabapentin 300 Mg Capsule) 300 mg PO DAILY [facility] [place] Last Admin: 06/28/25 08:30 Dose: Not Given Hydroxyzine HCl (Hydroxyzine Hcl 25 Mg Tablet) 25 mg PO Q6H PRN PRN Reason: mild anxiety Ibuprofen (Ibuprofen 600 Mg Tablet) 600 mg PO Q6H PRN PRN Reason: back pain Magnesium Hydroxide (Milk Of Magnesia 30 Ml Oral.Susp) 30 ml PO DAILY PRN PRN Reason: Constipation Methylphenidate HCl (Methylphenidate Hcl 10 Mg Tablet) 20 mg PO BID@0900,1400 [facility] [place] Last Admin: 06/28/25 13:05 Dose: 20 mg Mirtazapine (Mirtazapine 15 Mg Tablet) 15 mg PO BEDTIME [facility] [place] Last Admin: 06/28/25 22:25 Dose: 15 mg Multivitamins/Vitamin C (Multivitamin Tablet) 1 tab PO DAILY [facility] [place] Last Admin: 06/28/25 08:30 Dose: 1 tab Nicotine (Nicotine 14 Mg Patch.Td24) 14 mg TRANSDERMA DAILY PRN PRN Reason: nicotine craving Last Admin: 06/28/25 14:14 Dose: 14 mg Nicotine Polacrilex (Nicotine Polacrilex 2 Mg Gum) 2 mg BUCCAL Q2H PRN PRN Reason: Nicotine Cravings Last Admin: 06/28/25 17:11 Dose: 2 mg Non-Formulary Medication (Lisdexamfetamine [Vyvanse]) 60 mg PO DAILY [facility] [place] On Hold: 06/27/25 09:00 Omeprazole (Omeprazole 20 Mg Capsule.Dr) 20 mg PO DAILY@0630 [facility] [place] Last Admin: 06/29/25 06:10 Dose: 20 mg Ondansetron HCl (Ondansetron Odt 4 Mg Tab.Rapdis) 4 mg TRANSLINGU Q6H PRN PRN Reason: Nausea and Vomiting Propranolol HCl (Propranolol Hcl 10 Mg Tablet) 10 mg PO BID [facility] [place]; Protocol Last Admin: 06/28/25 21:12 Dose: 10 mg Sertraline HCl (Sertraline Hcl 50 Mg Tablet) 50 mg PO DAILY [facility] [place] Last Admin: 06/28/25 08:29 Dose: 50 mg Timolol Maleate (Timolol Maleate 0.5 % Oph Yoko 5 Ml Drbtl) 1 drop EYE-BOTH BID [facility] [place] Last Admin: 06/28/25 21:13 Dose: 1 drop Trazodone HCl (Trazodone Hcl 50 Mg Tablet) 50 mg PO BEDTIME MRX1 PRN PRN Reason: Insomnia Triamcinolone Acetonide (Triamcinolone Acet 0.1 % Oint 15 Gm Tube) 1 appl TOPICAL BID PRN PRN Reason: rash trunk/rt arm Last Admin: 06/26/25 11:51 Dose: 1 appl Allergies Allergies Allergy/AdvReac Type Severity Reaction Status Date / Time No Known Allergies Allergy Verified 06/25/25 14:40 Assessment & Plan Assessment & Plan (1) HTN (hypertension): Status: Acute Code(s): I10 - Essential (primary) hypertension (2) HLD (hyperlipidemia): Status: Acute Code(s): E78.5 - Hyperlipidemia, unspecified (3) Low testosterone in male: Status: Acute Code(s): R79.89 - Other specified abnormal findings of blood chemistry (4) Glaucoma: Status: Acute Code(s): H40.9 - Unspecified glaucoma (5) Narcolepsy: Status: Acute Code(s): G47.419 - Narcolepsy without cataplexy (6) Depressed: Status: Acute Code(s): F32.A - Depression, unspecified (7) PTSD (post-traumatic stress disorder): Status: Acute Code(s): F43.10 - Post-traumatic stress disorder, unspecified (8) Panic attack: Status: Acute Code(s): F41.0 - Panic disorder [episodic paroxysmal anxiety] Plan HPI: Patient is a 39 years old male with history PMH of PTSD, MDD panic attack, and medical hx of hypertension, glaucoma, narcolepsy, hyperlipidemia, low testosterone and social anxiety who presented to the ED for SI, depression. He feels hopeless and not motivated, difficulty getting out of bed to complete tests. Patient recently moved to [place] from [place] a work. 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 Reports having SI with plan to commit suicide but did not disclosed. History of suicide attempts, history of previous inpatient psychiatric admission. Patient has not taking medication for about a week, not have outpatient providers in the area. Reports poor sleep, good appetite, anxious, chest tightness, panic attacks. Formulation/clinical reasoning: continue expressing hopeless feel, sad and depressed, none medication compliant, newly moved to [place] from [place], history of suicide attempts. History of PTSD, panic attack, and depression. Given the above information, patient could benefit in acute care setting/restrictive environment for his own safety, restart on medication, and refer patient to outpatient services in [place] for aftercare. Hospital course: 06/26/25: Restart on Meds Xanax 1mg BID PRN for panic attack Hospitalist will start on eye drop for Glaucoma. Gabapentin 300mg daily for nerve pain. Remeron 15mg at HS for imsomnia Vyvance for narcolepsy - substitute for methylphenidate 20 twice a day Coreg 12.5 for hypertension. Effexor 75mg daily for depression We will discuss if patient continued to take Effexor or was stopped. 06/27/25: Patient reports he slept well was up 3 times last night. Was medication compliant, denies side effects, denies suicidal thoughts or hallucinations. Reports anxiety high on 04/10, and depression is better. We discussed potential having bipolar behavior history, patient denies any bipolar behavior. Reports that his mom has bipolar so he is aware what is behavior look like. We discussed about anti depression medication, he does not like Effexor even though it was working for him when he take up to 225 mg. He prefer to start the Zoloft as a new antidepressant for anxiety/ panic attack/depression. We discussed side effects and indications. Reviewed lab results with patient with pending level of testosterone. We also discussed potential not taking Xanax as for now he basically has no definite insurance that can cover it. He appeared to be depressed, pacing attempt with helpful as a coping skills, quiet and keeps to himself. Not hyperverbal pressure speech. Discontinue effexor. Start Serialize 50 on 06/28/25. Monitor for side effects. Reviewed lab results. Pending Testosterone level. Add Multivitamin and Omeprazole daily per patient's request. 06/28 hopeful about sertraline trial, appears vigilant 06/29 - wanting gabapentin to be prn, hoping sertraline will help dep and ptsd sys- Plan Patient on 15 minute checks for safety. Admitted to . CV. Work with treatment team to do collateral. Discuss with hospitalist regarding medical condition. labs. diagnostic as needed Patient educated on: medication risk/benefits Informed Consent: understands Reason for continued inpatient stay Substantial Risk for: inability to function and rapid decompensation Time Spent With Patient Time: Total time managing care of this patient today ____ minutes.
[2025-06-29 08:24] VITALS: BP 120/69; PULSE 62; TEMP 36.2; O2SAT 98
[2025-06-29] MEDS: timoloL maleate 0.5 % Oph Sol 5 ML DRBTL 1 DROP EYE-BOTH ×2 (09:45→20:49)
[2025-06-29] MEDS: Brimonidine Tartrate 0.2% Oph 5 ML BOTTLE 1 DROP EYE-BOTH ×2 (09:53→20:49)
[2025-06-29] MEDS: Aspirin Enteric Coated 81 MG TABLET.DR PO (09:54)
[2025-06-29] MEDS: Nicotine 14 MG PATCH.TD24 TRANSDERMA (12:06)
[2025-06-29 19:42] VITALS: BP 140/70; PULSE 74; RESP 16; TEMP 36.9; O2SAT 100
[2025-06-30 08:08] VITALS: BP 114/56; PULSE 55; TEMP 36.1; O2SAT 98
[2025-06-30] MEDS: Brimonidine Tartrate 0.2% Oph 5 ML BOTTLE 1 DROP EYE-BOTH ×2 (08:40→22:48)
[2025-06-30] MEDS: timoloL maleate 0.5 % Oph Sol 5 ML DRBTL 1 DROP EYE-BOTH ×2 (08:49→22:49)
[2025-06-30] MEDS: Aspirin Enteric Coated 81 MG TABLET.DR PO (08:52)
[2025-06-30] MEDS: Nicotine 14 MG PATCH.TD24 TRANSDERMA (09:11)
--- NOTE | 2025-06-30 17:31 | HO.PSYCHPN ---
Subjective Subjective Date of Service: 06/30/25 Reason For Visit: Major depressive disorder, severe Subjective Notes: 3 Day Healthcare Proxy: No Guardianship: No Medical Problems Affecting Mental Status: No Interim History: Medical record and nursing notes reviewed; case discussed during rounds with team/nursing staff, and met with patient for supportive therapy/psychoeducation, as well as medication management. Patient slept 8 hours, compliant with medications. Denies side effects new sertraline. Discussed with him regarding medication changes to target depression anxiety/PTSD. Patient is receptive with the plan Zoloft increased up to a 100mg. Patient requests to start on BuSpar 10 mg twice a day for anxiety as an add on. Change omeprazole to 16 30 instead of 6 3rd in the. Patient agreed to discontinue the gabapentin. Reports that continue to improve in anxiety and depression. He worries about how he going to get medication after discharge as he does not have insurance or ID. We discussed potential not going to give him the Xanax, as he does not have the ID therefore he will have trouble picking up the controlled medication. He talked about legs pain, take Tylenol but does not have. Motrin available but he has not trying. Encourage him to utilize it. We will not prescribe tramadol which he understands. Denies safety concerns. Mood is depressed, restrictive. Medication Compliance: No (Except for Omeprazole scheduled and offered too early in the AM) Side effects from medications: No Attending Groups: Intermittent Review of Systems Acute medical concerns: No Medical Review of Systems: unchanged Review of Systems Review of Systems Denies any shortness of breath, chest pain, dizziness, lightheadedness, abdominal pain or discomfort, nausea vomiting or diarrhea. Skin rash on upper body part- was in the lino which is improving. Yes all other systems are reviewed and are negative Mental Status Exam Mental Status Exam Narrative: Patient is alert and oriented x4; behavior is cooperative, mild to moderate depression and anxiety; patient is not in distress; dressed in hospital attire with kempt hair and adequate hygiene; mood is described as less anxious and depress and affect congruent; eye contact appropriate; Speech is normal rate, volume and prosody and not pressured; no psychomotor agitation/retardation present; thought process is organized and goal directed; Thought content is WNL, worry about aftercare in term of coverage for medication, pertinent to relevant topics and without any delusional content, paranoid ideation or grandiosity; denies any SIB/HI. Denies AH and there is no evidence of perceptual disturbance. Patient's insight fair and judgment improved. . Diagnostics Vital Signs (24Hr): Vital Signs - 24 hr 06/29/25 19:42 06/30/25 08:08 Temperature 98.4 F 97 F Pulse Rate 74 55 Respiratory Rate 16 Blood Pressure 140/70 H 114/56 L Pulse Oximetry 100 98 Oxygen Delivery Method Room Air Room Air BMI result Body Mass Index 22.6 Labs 06/26/25 07:49 Medications Medications Current Medications Acetaminophen (Acetaminophen 325 Mg Tablet) 650 mg PO Q6H PRN PRN Reason: Headache/Pain, Scale 1-10 Last Admin: 06/27/25 16:58 Dose: 650 mg Al Hydroxide/Mg Hydroxide (Magnesium Hydrox/Alum Hydrox 30 Ml Oral.Susp) 30 ml PO Q6H PRN PRN Reason: Heartburn/Nausea Alprazolam (Alprazolam 0.5 Mg Tablet) 1 mg PO BID PRN PRN Reason: panic attack Last Admin: 06/30/25 13:14 Dose: 1 mg Aspirin (Aspirin Enteric Coated 81 Mg Tablet.) 81 mg PO DAILY [facility] Last Admin: 06/30/25 08:52 Dose: 81 mg Atorvastatin Calcium (Atorvastatin Calcium 40 Mg Tablet) 40 mg PO BEDTIME [facility] Last Admin: 06/29/25 20:49 Dose: 40 mg Brimonidine Tartrate (Brimonidine Tartrate 0.2% Oph 5 Ml Bottle) 1 drop EYE-BOTH BID [facility] Last Admin: 06/30/25 08:40 Dose: 1 drop Buspirone HCl (Buspirone Hcl 10 Mg Tablet) 10 mg PO DAILY@1200,2100 [facility] Carvedilol (Carvedilol 12.5 Mg Tablet) 12.5 mg PO DAILY [facility]; Protocol Last Admin: 06/30/25 09:06 Dose: 12.5 mg Hydroxyzine HCl (Hydroxyzine Hcl 25 Mg Tablet) 25 mg PO Q6H PRN PRN Reason: mild anxiety Ibuprofen (Ibuprofen 600 Mg Tablet) 600 mg PO Q6H PRN PRN Reason: back pain Magnesium Hydroxide (Milk Of Magnesia 30 Ml Oral.Susp) 30 ml PO DAILY PRN PRN Reason: Constipation Methylphenidate HCl (Methylphenidate Hcl 10 Mg Tablet) 20 mg PO BID@0900,1400 [facility] Last Admin: 06/30/25 13:43 Dose: 20 mg Mirtazapine (Mirtazapine 15 Mg Tablet) 15 mg PO BEDTIME [facility] Last Admin: 06/29/25 22:47 Dose: 15 mg Multivitamins/Vitamin C (Multivitamin Tablet) 1 tab PO DAILY [facility] Last Admin: 06/30/25 08:52 Dose: 1 tab Nicotine (Nicotine 14 Mg Patch.Td24) 14 mg TRANSDERMA DAILY PRN PRN Reason: nicotine craving Last Admin: 06/30/25 09:11 Dose: 14 mg Nicotine Polacrilex (Nicotine Polacrilex 2 Mg Gum) 2 mg BUCCAL Q2H PRN PRN Reason: Nicotine Cravings Last Admin: 06/30/25 13:14 Dose: 2 mg Non-Formulary Medication (Lisdexamfetamine [Vyvanse]) 60 mg PO DAILY [facility] On Hold: 06/27/25 09:00 Omeprazole (Omeprazole 20 Mg Capsule.Dr) 20 mg PO DAILY@1630 [facility] Last Admin: 06/30/25 16:44 Dose: 20 mg Ondansetron HCl (Ondansetron Odt 4 Mg Tab.Rapdis) 4 mg TRANSLINGU Q6H PRN PRN Reason: Nausea and Vomiting Propranolol HCl (Propranolol Hcl 10 Mg Tablet) 10 mg PO BID [facility]; Protocol Last Admin: 06/30/25 09:06 Dose: 10 mg Sertraline HCl (Sertraline Hcl 100 Mg Tablet) 100 mg PO DAILY [facility] Timolol Maleate (Timolol Maleate 0.5 % Oph Yoko 5 Ml Drbtl) 1 drop EYE-BOTH BID [facility] Last Admin: 06/30/25 08:49 Dose: 1 drop Trazodone HCl (Trazodone Hcl 50 Mg Tablet) 50 mg PO BEDTIME MRX1 PRN PRN Reason: Insomnia Triamcinolone Acetonide (Triamcinolone Acet 0.1 % Oint 15 Gm Tube) 1 appl TOPICAL BID PRN PRN Reason: rash trunk/rt arm Last Admin: 06/26/25 11:51 Dose: 1 appl Allergies Allergies Allergy/AdvReac Type Severity Reaction Status Date / Time No Known Allergies Allergy Verified 06/25/25 14:40 Assessment & Plan Assessment & Plan (1) HTN (hypertension): Status: Acute Code(s): I10 - Essential (primary) hypertension (2) HLD (hyperlipidemia): Status: Acute Code(s): E78.5 - Hyperlipidemia, unspecified (3) Low testosterone in male: Status: Acute Code(s): R79.89 - Other specified abnormal findings of blood chemistry (4) Glaucoma: Status: Acute Code(s): H40.9 - Unspecified glaucoma (5) Narcolepsy: Status: Acute Code(s): G47.419 - Narcolepsy without cataplexy (6) Depressed: Status: Acute Code(s): F32.A - Depression, unspecified (7) PTSD (post-traumatic stress disorder): Status: Acute Code(s): F43.10 - Post-traumatic stress disorder, unspecified (8) Panic attack: Status: Acute Code(s): F41.0 - Panic disorder [episodic paroxysmal anxiety] Plan HPI: Patient is a 39 years old male with history PMH of PTSD, MDD panic attack, and medical hx of hypertension, glaucoma, narcolepsy, hyperlipidemia, low testosterone and social anxiety who presented to the ED for SI, depression. He feels hopeless and not motivated, difficulty getting out of bed to complete tests. Patient recently moved to [place] from [place] a work. 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 Reports having SI with plan to commit suicide but did not disclosed. History of suicide attempts, history of previous inpatient psychiatric admission. Patient has not taking medication for about a week, not have outpatient providers in the area. Reports poor sleep, good appetite, anxious, chest tightness, panic attacks. Formulation/clinical reasoning: continue expressing hopeless feel, sad and depressed, none medication compliant, newly moved to [place] from [place], history of suicide attempts. History of PTSD, panic attack, and depression. Given the above information, patient could benefit in acute care setting/restrictive environment for his own safety, restart on medication, and refer patient to outpatient services in [place] for aftercare. Hospital course: 06/26/25: Restart on Meds Xanax 1mg BID PRN for panic attack Hospitalist will start on eye drop for Glaucoma. Gabapentin 300mg daily for nerve pain. Remeron 15mg at HS for imsomnia Vyvance for narcolepsy - substitute for methylphenidate 20 twice a day Coreg 12.5 for hypertension. Effexor 75mg daily for depression We will discuss if patient continued to take Effexor or was stopped. 06/27/25: Patient reports he slept well was up 3 times last night. Was medication compliant, denies side effects, denies suicidal thoughts or hallucinations. Reports anxiety high on 04/10, and depression is better. We discussed potential having bipolar behavior history, patient denies any bipolar behavior. Reports that his mom has bipolar so he is aware what is behavior look like. We discussed about anti depression medication, he does not like Effexor even though it was working for him when he take up to 225 mg. He prefer to start the Zoloft as a new antidepressant for anxiety/ panic attack/depression. We discussed side effects and indications. Reviewed lab results with patient with pending level of testosterone. We also discussed potential not taking Xanax as for now he basically has no definite insurance that can cover it. He appeared to be depressed, pacing attempt with helpful as a coping skills, quiet and keeps to himself. Not hyperverbal pressure speech. Discontinue effexor. Start Serialize 50 on 06/28/25. Monitor for side effects. Reviewed lab results. Pending Testosterone level. Add Multivitamin and Omeprazole daily per patient's request. 06/28 hopeful about sertraline trial, appears vigilant 06/29 - wanting gabapentin to be prn, hoping sertraline will help dep and ptsd sys- 06/30/25: Patient slept 8 hours, compliant with medications. Denies side effects new sertraline. Discussed with him regarding medication changes to target depression anxiety/PTSD. Patient is receptive with the plan Zoloft increased up to a 100mg. Patient requests to start on BuSpar 10 mg twice a day for anxiety as an add on. Change omeprazole to 16 30 instead of 6 3rd in the. Patient agreed to discontinue the gabapentin. Reports that continue to improve in anxiety and depression. He worries about how he going to get medication after discharge as he does not have insurance or ID. We discussed potential not going to give him the Xanax, as he does not have the ID therefore he will have trouble picking up the controlled medication. He talked about legs pain, take Tylenol but does not have. Motrin available but he has not trying. Encourage him to utilize it. We will not prescribe tramadol which he understands. Denies safety concerns. Mood is depressed, restrictive. Increase Sertraline 100mg daily for depression/PTSD. Buspar 10mg BID for anxiety. Omeprazole from 0630 to 1630 for better compliant. Discontinue Gapapentin 300mg PRN daily. Educate on using other PRN for anxiety prior asking for Xanax. Plan Patient on 15 minute checks for safety. Admitted to . Signed 3 day notice on 07/03/25 Work with treatment team to do collateral. Discuss with hospitalist regarding medical condition. labs. Pending Testoerone. diagnostic as needed Patient educated on: diagnosis, medication risk/benefits and therapeutic strategies Informed Consent: understands Reason for continued inpatient stay Substantial Risk for: med/psych decompensation Time Spent With Patient Time: Total time managing care of this patient today ____ minutes.
[2025-06-30 19:33] LABS: Testosterone, Free 68.0 pg/mL (35.0-155.0)
[2025-06-30 20:00] VITALS: BP 121/73; PULSE 89; RESP 16; TEMP 36.3; O2SAT 97
[2025-06-30 22:46] VITALS: BP 130/85
[2025-07-01 10:00] VITALS: BP 133/74; PULSE 84; RESP 16; TEMP 36.9; O2SAT 97
[2025-07-01] MEDS: timoloL maleate 0.5 % Oph Sol 5 ML DRBTL 1 DROP EYE-BOTH ×2 (10:06→22:57)
[2025-07-01] MEDS: Brimonidine Tartrate 0.2% Oph 5 ML BOTTLE 1 DROP EYE-BOTH ×2 (10:06→22:57)
[2025-07-01] MEDS: Aspirin Enteric Coated 81 MG TABLET.DR PO (10:06)
[2025-07-01] MEDS: Nicotine 7 MG PATCH.TD24 TRANSDERMA (12:01)
--- NOTE | 2025-07-01 14:44 | HO.PSYCHPN ---
Subjective Subjective Date of Service: 07/01/25 Reason For Visit: Major depressive disorder, severe Subjective Notes: Conditional Voluntary and 3 Day Healthcare Proxy: No Guardianship: No Medical Problems Affecting Mental Status: No Interim History: Met with pt, review of admit to this date. Denies SI,HI,AH, VH. Discussed needing to begin again and believes the place to start will be at a custodial. Has a TDN in place and has talked with his social worker school about retraction, but is unsure. Discussed care home back pain and pain mgt strategies. By hx Tramadol/Flexeril have been helpful in limited doses. Reports sleep/appetite are returning to baseline. Medication Compliance: Yes Side effects from medications: No Attending Groups: Intermittent Review of Systems Acute medical concerns: No Medical Review of Systems: unchanged Review of Systems Review of Systems chronic back pain Mental Status Exam Mental Status Exam Patient Appearance: Appropriate Patient Orientation: Person, Place, Time and Situation Level of Consciousness: Alert Patient Behavior: Talkative and Good Eye Contact Mood Description: Blunted Affect Description: Blunted Patient Cognition Impaired: No Ability to Follow Directions: Good Speech Pattern: Spontaneous Speech Memory Description: Intact Hallucinations: None Delusions: Not Present Thought Process: Distracted Thought Content: positive for Circumstantial and positive for Suicidal Ideation (denies) Depressive Symptoms: Thoughts of /Suicide (denies) Judgement: Fair Diagnostics Vital Signs (24Hr): Vital Signs - 24 hr 06/30/25 20:00 06/30/25 22:46 07/01/25 10:00 Temperature 97.3 F 98.4 F Pulse Rate 89 84 Respiratory Rate 16 16 Blood Pressure 121/73 130/85 133/74 Pulse Oximetry 97 97 Oxygen Delivery Method Room Air Room Air BMI result Body Mass Index 22.6 Labs 06/26/25 07:49 Labs: Laboratory Results - last 48 hr 06/26/25 11:16 Total Testosterone 302 Fr Testosterone Dialys 68.0 Medications Medications Current Medications Acetaminophen (Acetaminophen 325 Mg Tablet) 650 mg PO Q6H PRN PRN Reason: Headache/Pain, Scale 1-10 Last Admin: 07/01/25 06:14 Dose: 650 mg Al Hydroxide/Mg Hydroxide (Magnesium Hydrox/Alum Hydrox 30 Ml Oral.Susp) 30 ml PO Q6H PRN PRN Reason: Heartburn/Nausea Alprazolam (Alprazolam 0.5 Mg Tablet) 1 mg PO BID PRN PRN Reason: panic attack Last Admin: 07/01/25 06:21 Dose: 1 mg Aspirin (Aspirin Enteric Coated 81 Mg Tablet.Dr) 81 mg PO DAILY [facility] [place] Last Admin: 07/01/25 10:06 Dose: 81 mg Atorvastatin Calcium (Atorvastatin Calcium 40 Mg Tablet) 40 mg PO BEDTIME [facility] [place] Last Admin: 06/30/25 22:45 Dose: 40 mg Brimonidine Tartrate (Brimonidine Tartrate 0.2% Oph 5 Ml Bottle) 1 drop EYE-BOTH BID [facility] [place] Last Admin: 07/01/25 10:06 Dose: 1 drop Buspirone HCl (Buspirone Hcl 10 Mg Tablet) 10 mg PO DAILY@1200,2100 [facility] [place] Last Admin: 07/01/25 12:01 Dose: 10 mg Carvedilol (Carvedilol 12.5 Mg Tablet) 12.5 mg PO DAILY [facility] [place]; Protocol Last Admin: 07/01/25 10:06 Dose: 12.5 mg Hydroxyzine HCl (Hydroxyzine Hcl 25 Mg Tablet) 25 mg PO Q6H PRN PRN Reason: mild anxiety Ibuprofen (Ibuprofen 600 Mg Tablet) 600 mg PO Q6H PRN PRN Reason: back pain Magnesium Hydroxide (Milk Of Magnesia 30 Ml Oral.Susp) 30 ml PO DAILY PRN PRN Reason: Constipation Methylphenidate HCl (Methylphenidate Hcl 10 Mg Tablet) 20 mg PO BID@0900,1400 [facility] [place] Last Admin: 07/01/25 14:37 Dose: 20 mg Mirtazapine (Mirtazapine 15 Mg Tablet) 15 mg PO BEDTIME [facility] Last Admin: 06/30/25 22:45 Dose: 15 mg Multivitamins/Vitamin C (Multivitamin Tablet) 1 tab PO DAILY [facility] [place] Last Admin: 07/01/25 10:06 Dose: 1 tab Nicotine (Nicotine 7 Mg Patch.Td24) 7 mg TRANSDERMA DAILY PRN PRN Reason: Nicotine Cravings Last Admin: 07/01/25 12:01 Dose: 7 mg Nicotine Polacrilex (Nicotine Polacrilex 2 Mg Gum) 2 mg BUCCAL Q2H PRN PRN Reason: Nicotine Cravings Last Admin: 07/01/25 11:33 Dose: 2 mg Non-Formulary Medication (Lisdexamfetamine [Vyvanse]) 60 mg PO DAILY [facility] [place] On Hold: 06/27/25 09:00 Omeprazole (Omeprazole 20 Mg Capsule.Dr) 20 mg PO DAILY@1630 [facility] [place] Last Admin: 06/30/25 16:44 Dose: 20 mg Ondansetron HCl (Ondansetron Odt 4 Mg Tab.Rapdis) 4 mg TRANSLINGU Q6H PRN PRN Reason: Nausea and Vomiting Propranolol HCl (Propranolol Hcl 10 Mg Tablet) 10 mg PO BID [facility] [place]; Protocol Last Admin: 07/01/25 10:06 Dose: 10 mg Sertraline HCl (Sertraline Hcl 100 Mg Tablet) 100 mg PO DAILY [facility] [place] Last Admin: 07/01/25 10:06 Dose: 100 mg Timolol Maleate (Timolol Maleate 0.5 % Oph Yoko 5 Ml Drbtl) 1 drop EYE-BOTH BID [facility] [place] Last Admin: 07/01/25 10:06 Dose: 1 drop Trazodone HCl (Trazodone Hcl 50 Mg Tablet) 50 mg PO BEDTIME MRX1 PRN PRN Reason: Insomnia Triamcinolone Acetonide (Triamcinolone Acet 0.1 % Oint 15 Gm Tube) 1 appl TOPICAL BID PRN PRN Reason: rash trunk/rt arm Last Admin: 06/26/25 11:51 Dose: 1 appl Allergies Allergies Allergy/AdvReac Type Severity Reaction Status Date / Time No Known Allergies Allergy Verified 06/25/25 14:40 Assessment & Plan Assessment & Plan (1) Narcolepsy: Status: Acute Code(s): G47.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 He feels hopeless and not motivated, difficulty getting out of bed to complete tests. Patient recently moved to [place] from [place] a work. 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 Reports having SI with plan to commit suicide but did not disclosed. History of suicide attempts, history of previous inpatient psychiatric admission. Patient has not taking medication for about a week, not have outpatient providers in the area. Reports poor sleep, good appetite, anxious, chest tightness, panic attacks. Formulation/clinical reasoning: continue expressing hopeless feel, sad and depressed, none medication compliant, newly moved to [place] from [place], history of suicide attempts. History of PTSD, panic attack, and depression. Given the above information, patient could benefit in acute care setting/restrictive environment for his own safety, restart on medication, and refer patient to outpatient services in [place] for aftercare. Hospital course: 06/26/25: Restart on Meds Xanax 1mg BID PRN for panic attack Hospitalist will start on eye drop for Glaucoma. Gabapentin 300mg daily for nerve pain. Remeron 15mg at HS for imsomnia Vyvance for narcolepsy - substitute for methylphenidate 20 twice a day Coreg 12.5 for hypertension. Effexor 75mg daily for depression We will discuss if patient continued to take Effexor or was stopped. 06/27/25: Patient reports he slept well was up 3 times last night. Was medication compliant, denies side effects, denies suicidal thoughts or hallucinations. Reports anxiety high on 04/10, and depression is better. We discussed potential having bipolar behavior history, patient denies any bipolar behavior. Reports that his mom has bipolar so he is aware what is behavior look like. We discussed about anti depression medication, he does not like Effexor even though it was working for him when he take up to 225 mg. He prefer to start the Zoloft as a new antidepressant for anxiety/ panic attack/depression. We discussed side effects and indications. Reviewed lab results with patient with pending level of testosterone. We also discussed potential not taking Xanax as for now he basically has no definite insurance that can cover it. He appeared to be depressed, pacing attempt with helpful as a coping skills, quiet and keeps to himself. Not hyperverbal pressure speech. Discontinue effexor. Start Serialize 50 on 06/28/25. Monitor for side effects. Reviewed lab results. Pending Testosterone level. Add Multivitamin and Omeprazole daily per patient's request. 06/28 hopeful about sertraline trial, appears vigilant 06/29 - wanting gabapentin to be prn, hoping sertraline will help dep and ptsd sys- 06/30/25: Patient slept 8 hours, compliant with medications. Denies side effects new sertraline. Discussed with him regarding medication changes to target depression anxiety/PTSD. Patient is receptive with the plan Zoloft increased up to a 100mg. Patient requests to start on BuSpar 10 mg twice a day for anxiety as an add on. Change omeprazole to 16 30 instead of 6 3rd in the. Patient agreed to discontinue the gabapentin. Reports that continue to improve in anxiety and depression. He worries about how he going to get medication after discharge as he does not have insurance or ID. We discussed potential not going to give him the Xanax, as he does not have the ID therefore he will have trouble picking up the controlled medication. He talked about legs pain, take Tylenol but does not have. Motrin available but he has not trying. Encourage him to utilize it. We will not prescribe tramadol which he understands. Denies safety concerns. Mood is depressed, restrictive. Increase Sertraline 100mg daily for depression/PTSD. Buspar 10mg BID for anxiety. Omeprazole from 0630 to 1630 for better compliant. Discontinue Gapapentin 300mg PRN daily. Educate on using other PRN for anxiety prior asking for Xanax. 07/01: TDN to end 07/03. Back pain- low dose prn Flexeril/Tramadol Continue current regime Plan Patient on 15 minute checks for safety. Admitted to [facility]. Signed 3 day notice on 07/03/25 Work with treatment team to do collateral. Discuss with hospitalist regarding medical condition. labs. Pending Testoerone. diagnostic as needed Reason for continued inpatient stay Substantial Risk for: rapid decompensation Time Spent With Patient Time: Total time managing care of this patient today ____ minutes.
[2025-07-01 20:00] VITALS: BP 109/60; PULSE 63; RESP 16; TEMP 36.5; O2SAT 99
[2025-07-01 22:17] VITALS: BP 120/70
[2025-07-02 10:10] VITALS: BP 118/75; PULSE 63; RESP 16; TEMP 36.4; O2SAT 100
[2025-07-02] MEDS: Brimonidine Tartrate 0.2% Oph 5 ML BOTTLE 1 DROP EYE-BOTH ×2 (10:13→21:39)
[2025-07-02] MEDS: Aspirin Enteric Coated 81 MG TABLET.DR PO (10:13)
[2025-07-02] MEDS: Nicotine 7 MG PATCH.TD24 TRANSDERMA (10:13)
[2025-07-02] MEDS: timoloL maleate 0.5 % Oph Sol 5 ML DRBTL 1 DROP EYE-BOTH ×2 (10:13→21:39)
--- NOTE | 2025-07-02 17:00 | P.PNPSI_ITS ---
Subjective Subjective Date of Service: 07/02/25 Reason For Visit: Major depressive disorder, severe Subjective Notes: Conditional Voluntary Healthcare Proxy: No Guardianship: No Medical Problems Affecting Mental Status: No Interim History: Medical record and nursing notes reviewed; case discussed during rounds with team/nursing staff, and met with patient for supportive therapy/psychoeducation, as well as medication management. Patient reported that he was not able to sleep last night d/t his roommate who snored so loud at night. Because of lacking of sleep, he was not doing well this morning, affected his mood, was irritable and agitated early regarding meds this morning per nursing staff. patient able to feel calmer during assessment. Patient does not think he would be ready for tomorrow discharge follow by TDN signed on Monday. Patient reports that since restarted on meds, patient feels much better but want to make sure he has good safe discharge plan. SW explained to patient how senior care system worked in [place]. Currently Longterm in [place] has no bed available this week. Patient also chooses to have PCP at [facility] to start. Potential to be discharged early next week. D/t insurance issues, there are anticipated some issue coverage with meds. Medication Compliance: Yes Side effects from medications: No Attending Groups: No Review of Systems Acute medical concerns: No Medical Review of Systems: unchanged Review of Systems Review of Systems Denies any shortness of breath, chest pain, dizziness, lightheadedness, abdominal pain or discomfort, nausea vomiting or diarrhea. Skin rash on upper body part- was in the lino which is improving. Yes all other systems are reviewed and are negative Mental Status Exam Mental Status Exam Narrative: Patient is alert and oriented x4; behavior is cooperative, mild to moderate depression and anxiety; irritable/agiated x1, patient is not in distress; dressed in hospital attire with kempt hair and adequate hygiene; mood is described as improving and affect congruent; eye contact appropriate; Speech is normal rate, volume and prosody and not pressured; no psychomotor agitation/retardation present; thought process is organized and goal directed; Thought content is WNL, worry about aftercare in term of coverage for medication , pertinent to relevant topics and without any delusional content, paranoid ideation or grandiosity; denies any SIB/HI. Denies AH and there is no evidence of perceptual disturbance. Patient's insight fair and judgment improved. . Diagnostics Vital Signs (24Hr): Vital Signs - 24 hr 07/01/25 20:00 07/01/25 22:17 07/02/25 10:10 Temperature 97.7 F 97.6 F Pulse Rate 63 63 Respiratory Rate 16 16 Blood Pressure 109/60 120/70 118/75 Pulse Oximetry 99 100 Oxygen Delivery Method Room Air Room Air BMI result Body Mass Index 22.6 Labs 06/26/25 07:49 Labs: Laboratory Results - last 48 hr 06/26/25 11:16 Total Testosterone 302 Fr Testosterone Dialys 68.0 Medications Medications Current Medications Acetaminophen (Acetaminophen 325 Mg Tablet) 650 mg PO Q6H PRN PRN Reason: Headache/Pain, Scale 1-10 Last Admin: 07/01/25 06:14 Dose: 650 mg Al Hydroxide/Mg Hydroxide (Magnesium Hydrox/Alum Hydrox 30 Ml Oral.Susp) 30 ml PO Q6H PRN PRN Reason: Heartburn/Nausea Alprazolam (Alprazolam 0.5 Mg Tablet) 1 mg PO BID PRN PRN Reason: panic attack Last Admin: 07/02/25 12:08 Dose: 1 mg Aspirin (Aspirin Enteric Coated 81 Mg Tablet.Dr) 81 mg PO DAILY [facility] Last Admin: 07/02/25 10:13 Dose: 81 mg Atorvastatin Calcium (Atorvastatin Calcium 40 Mg Tablet) 40 mg PO BEDTIME [facility] Last Admin: 07/01/25 22:17 Dose: 40 mg Brimonidine Tartrate (Brimonidine Tartrate 0.2% Oph 5 Ml Bottle) 1 drop EYE- BOTH BID [facility] Last Admin: 07/02/25 10:13 Dose: 1 drop Buspirone HCl (Buspirone Hcl 10 Mg Tablet) 10 mg PO DAILY@1200,2100 [facility] Last Admin: 07/02/25 12:08 Dose: Not Given Carvedilol (Carvedilol 12.5 Mg Tablet) 12.5 mg PO DAILY [facility]; Protocol Last Admin: 07/02/25 10:15 Dose: 12.5 mg Cyclobenzaprine HCl (Cyclobenzaprine Hcl 5 Mg Tablet) 5 mg PO TID PRN PRN Reason: muscle spasm-back Last Admin: 07/01/25 21:18 Dose: 5 mg Hydroxyzine HCl (Hydroxyzine Hcl 25 Mg Tablet) 25 mg PO Q6H PRN PRN Reason: mild anxiety Ibuprofen (Ibuprofen 600 Mg Tablet) 600 mg PO Q6H PRN PRN Reason: back pain Magnesium Hydroxide (Milk Of Magnesia 30 Ml Oral.Susp) 30 ml PO DAILY PRN PRN Reason: Constipation Methylphenidate HCl (Methylphenidate Hcl 10 Mg Tablet) 20 mg PO BID@0900,1400 [facility] [place] Last Admin: 07/02/25 14:41 Dose: 20 mg Mirtazapine (Mirtazapine 15 Mg Tablet) 15 mg PO BEDTIME [facility] Last Admin: 07/01/25 22:57 Dose: 15 mg Multivitamins/Vitamin C (Multivitamin Tablet) 1 tab PO DAILY [facility] Last Admin: 07/02/25 10:15 Dose: 1 tab Nicotine (Nicotine 7 Mg Patch.Td24) 7 mg TRANSDERMA DAILY PRN PRN Reason: Nicotine Cravings Last Admin: 07/02/25 10:13 Dose: 7 mg Nicotine Polacrilex (Nicotine Polacrilex 2 Mg Gum) 2 mg BUCCAL Q2H PRN PRN Reason: Nicotine Cravings Last Admin: 07/02/25 14:47 Dose: 2 mg Omeprazole (Omeprazole 20 Mg Capsule.Dr) 20 mg PO DAILY@1630 [facility] Last Admin: 07/02/25 16:53 Dose: Not Given Ondansetron HCl (Ondansetron Odt 4 Mg Tab.Rapdis) 4 mg TRANSLINGU Q6H PRN PRN Reason: Nausea and Vomiting Propranolol HCl (Propranolol Hcl 10 Mg Tablet) 10 mg PO BID [facility]; Protocol Last Admin: 07/02/25 10:14 Dose: 10 mg Sertraline HCl (Sertraline Hcl 100 Mg Tablet) 100 mg PO DAILY [facility] [place] Last Admin: 07/02/25 10:14 Dose: 100 mg Timolol Maleate (Timolol Maleate 0.5 % Oph Yoko 5 Ml Drbtl) 1 drop EYE-BOTH BID [facility] Last Admin: 07/02/25 10:13 Dose: 1 drop Tramadol HCl (Tramadol Hcl 50 Mg Tablet) 25 mg PO Q4H PRN PRN Reason: back pain Last Admin: 07/02/25 10:39 Dose: 25 mg Trazodone HCl (Trazodone Hcl 50 Mg Tablet) 50 mg PO BEDTIME MRX1 PRN PRN Reason: Insomnia Triamcinolone Acetonide (Triamcinolone Acet 0.1 % Oint 15 Gm Tube) 1 appl TOPICAL BID PRN PRN Reason: rash trunk/rt arm Last Admin: 06/26/25 11:51 Dose: 1 appl Allergies Allergies Allergy/AdvReac Type Severity Reaction Status Date / Time No Known Allergies Allergy Verified 06/25/25 14:40 Assessment & Plan Assessment & Plan (1) HTN (hypertension): Status: Acute Code(s): I10 - Essential (primary) hypertension (2) HLD (hyperlipidemia): Status: Acute Code(s): E78.5 - Hyperlipidemia, unspecified (3) Low testosterone in male: Status: Acute Code(s): R79.89 - Other specified abnormal findings of blood chemistry (4) Glaucoma: Status: Acute Code(s): H40.9 - Unspecified glaucoma (5) Narcolepsy: Status: Acute Code(s): G47.419 - Narcolepsy without cataplexy (6) Depressed: Status: Acute Code(s): F32.A - Depression, unspecified (7) PTSD (post-traumatic stress disorder): Status: Acute Code(s): F43.10 - Post-traumatic stress disorder, unspecified (8) Panic attack: Status: Acute Code(s): F41.0 - Panic disorder [episodic paroxysmal anxiety] Plan HPI: Patient is a 39 years old male with history PMH of PTSD, MDD panic attack, and medical hx of hypertension, glaucoma, narcolepsy, hyperlipidemia, low testosterone and social anxiety who presented to the ED for SI, depression. He feels hopeless and not motivated, difficulty getting out of bed to complete tests. Patient recently moved to [place] from [place] a work. 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 Reports having SI with plan to commit suicide but did not disclosed. History of suicide attempts, history of previous inpatient psychiatric admission. Patient has not taking medication for about a week, not have outpatient providers in the area. Reports poor sleep, good appetite, anxious, chest tightness, panic attacks. Formulation/clinical reasoning: continue expressing hopeless feel, sad and depressed, none medication compliant, newly moved to [place] from [place], history of suicide attempts. History of PTSD, panic attack, and depression. Given the above information, patient could benefit in acute care setting/restrictive environment for his own safety, restart on medication, and refer patient to outpatient services in [place] for aftercare. Hospital course: 06/26/25: Restart on Meds Xanax 1mg BID PRN for panic attack Hospitalist will start on eye drop for Glaucoma. Gabapentin 300mg daily for nerve pain. Remeron 15mg at HS for imsomnia Vyvance for narcolepsy - substitute for methylphenidate 20 twice a day Coreg 12.5 for hypertension. Effexor 75mg daily for depression We will discuss if patient continued to take Effexor or was stopped. 06/27/25: Patient reports he slept well was up 3 times last night. Was medication compliant, denies side effects, denies suicidal thoughts or hallucinations. Reports anxiety high on 04/10, and depression is better. We discussed potential having bipolar behavior history, patient denies any bipolar behavior. Reports that his mom has bipolar so he is aware what is behavior look like. We discussed about anti depression medication, he does not like Effexor even though it was working for him when he take up to 225 mg. He prefer to start the Zoloft as a new antidepressant for anxiety/ panic attack/depression. We discussed side effects and indications. Reviewed lab results with patient with pending level of testosterone. We also discussed potential not taking Xanax as for now he basically has no definite insurance that can cover it. He appeared to be depressed, pacing attempt with helpful as a coping skills, quiet and keeps to himself. Not hyperverbal pressure speech. Discontinue effexor. Start Serialize 50 on 06/28/25. Monitor for side effects. Reviewed lab results. Pending Testosterone level. Add Multivitamin and Omeprazole daily per patient's request. 06/28 hopeful about sertraline trial, appears vigilant 06/29 - wanting gabapentin to be prn, hoping sertraline will help dep and ptsd sys- 06/30/25: Patient slept 8 hours, compliant with medications. Denies side effects new sertraline. Discussed with him regarding medication changes to target depression anxiety/PTSD. Patient is receptive with the plan Zoloft increased up to a 100mg. Patient requests to start on BuSpar 10 mg twice a day for anxiety as an add on. Change omeprazole to 16 30 instead of 6 3rd in the. Patient agreed to discontinue the gabapentin. Reports that continue to improve in anxiety and depression. He worries about how he going to get medication after discharge as he does not have insurance or ID. We discussed potential not going to give him the Xanax, as he does not have the ID therefore he will have trouble picking up the controlled medication. He talked about legs pain, take Tylenol but does not have. Motrin available but he has not trying. Encourage him to utilize it. We will not prescribe tramadol which he understands. Denies safety concerns. Mood is depressed, restrictive. Increase Sertraline 100mg daily for depression/PTSD. Buspar 10mg BID for anxiety. Omeprazole from 0630 to 1630 for better compliant. Discontinue Gapapentin 300mg PRN daily. Educate on using other PRN for anxiety prior asking for Xanax. 07/02/25: Patient reported that he was not able to sleep last night d/t his roommate who snored so loud at night. Because of lacking of sleep, he was not doing well this morning, affected his mood, was irritable and agitated early regarding meds this morning per nursing staff. patient able to feel calmer during assessment. Patient does not think he would be ready for tomorrow discharge follow by TDN signed on Monday. Patient reports that since restarted on meds, patient feels much better but want to make sure he has good safe discharge plan. SW explained to patient how senior care system worked in [place]. Currently Longterm in [place] has no bed available this week. Patient also chooses to have PCP at [facility] to start. Potential to be discharged early next week. D/t insurance issues, there are anticipated some issue coverage with meds. Patient continues to explore more safer discharge plans: will continue to reach out to friends/family for placement. Has been called friends but has not heard from them. Plan Patient on 15 minute checks for safety. Admitted to [facility]5. Retracted 3day notice. Tentative discharge early next week. Work with treatment team to do collateral. Discuss with hospitalist regarding medical condition. labs. Reiewed Testoerone levels with patient on 07/02/25: WNL. diagnostic as needed Patient educated on: medication risk/benefits and therapeutic strategies Reason for continued inpatient stay Substantial Risk for: med/psych decompensation Time Spent With Patient Time: Total time managing care of this patient today ____ minutes.
[2025-07-02 20:00] VITALS: BP 146/82; PULSE 57; RESP 18; TEMP 37.1; O2SAT 100
[2025-07-02 21:38] VITALS: BP 146/82; PULSE 57
[2025-07-03] MEDS: Aspirin Enteric Coated 81 MG TABLET.DR PO (09:40)
[2025-07-03 09:44] VITALS: BP 120/60; PULSE 74; RESP 18; TEMP 36.4; O2SAT 97
[2025-07-03] MEDS: Nicotine 7 MG PATCH.TD24 TRANSDERMA (11:29)
[2025-07-03] MEDS: timoloL maleate 0.5 % Oph Sol 5 ML DRBTL 1 DROP EYE-BOTH (11:53)
[2025-07-03] MEDS: Brimonidine Tartrate 0.2% Oph 5 ML BOTTLE 1 DROP EYE-BOTH (11:54)
--- NOTE | 2025-07-03 16:34 | P.PNPSI_ITS ---
Subjective Subjective Date of Service: 07/03/25 Reason For Visit: Major depressive disorder, severe Subjective Notes: Conditional Voluntary Healthcare Proxy: No Guardianship: No Medical Problems Affecting Mental Status: No Interim History: Medical record and nursing notes reviewed; case discussed during rounds with team/nursing staff, and met with patient for supportive therapy/psychoeducation, as well as medication management. Patient report sleep and appetite are better. Denies side effects. Denies side effects. Patient continue with with treatment team for aftercare plan, calling places and family/friends for better and safer discharge plan: pending results. Possible discharge next week. Patient appears to anxious and depressed. Medication Compliance: Yes Side effects from medications: No Attending Groups: No Review of Systems Acute medical concerns: No Medical Review of Systems: unchanged Review of Systems Review of Systems Denies any shortness of breath, chest pain, dizziness, lightheadedness, abdominal pain or discomfort, nausea vomiting or diarrhea. Yes all other systems are reviewed and are negative Mental Status Exam Mental Status Exam Narrative: Patient is alert and oriented x4; behavior is cooperative, mild to moderate depression and anxiety related to unsure of discharge and unsafe discharge plan; no irritable/agitated, patient is not in distress; dressed in hospital attire with kempt hair and adequate hygiene; mood is described as improving and affect congruent; eye contact appropriate; Speech is normal rate, volume and prosody and not pressured; no psychomotor agitation/retardation present; thought process is organized and goal directed; Thought content is WNL, worry about aftercare in term of coverage for medication , pertinent to relevant topics and without any delusional content, paranoid ideation or grandiosity; denies any SIB/HI. Denies AH and there is no evidence of perceptual disturbance. Patient's insight fair and judgment improved. . Diagnostics Vital Signs (24Hr): Vital Signs - 24 hr 07/02/25 20:00 07/02/25 21:38 07/03/25 09:44 Temperature 98.8 F 97.6 F Pulse Rate 57 57 74 Respiratory Rate 18 18 Blood Pressure 146/82 H 146/82 H 120/60 Pulse Oximetry 100 97 Oxygen Delivery Method Room Air Room Air BMI result Body Mass Index 22.6 Labs 06/26/25 07:49 Medications Medications Current Medications Acetaminophen (Acetaminophen 325 Mg Tablet) 650 mg PO Q6H PRN PRN Reason: Headache/Pain, Scale 1-10 Last Admin: 07/01/25 06:14 Dose: 650 mg Al Hydroxide/Mg Hydroxide (Magnesium Hydrox/Alum Hydrox 30 Ml Oral.Susp) 30 ml PO Q6H PRN PRN Reason: Heartburn/Nausea Alprazolam (Alprazolam 0.5 Mg Tablet) 1 mg PO BID PRN PRN Reason: panic attack Last Admin: 07/03/25 15:16 Dose: 1 mg Aspirin (Aspirin Enteric Coated 81 Mg Tablet.Dr) 81 mg PO DAILY [facility] Last Admin: 07/03/25 09:40 Dose: 81 mg Atorvastatin Calcium (Atorvastatin Calcium 40 Mg Tablet) 40 mg PO BEDTIME [facility] Last Admin: 07/02/25 21:39 Dose: 40 mg Brimonidine Tartrate (Brimonidine Tartrate 0.2% Oph 5 Ml Bottle) 1 drop EYE- BOTH BID [facility] Last Admin: 07/03/25 11:54 Dose: 1 drop Buspirone HCl (Buspirone Hcl 10 Mg Tablet) 10 mg PO DAILY@1200,2100 [facility] Last Admin: 07/03/25 11:55 Dose: 10 mg Carvedilol (Carvedilol 12.5 Mg Tablet) 12.5 mg PO DAILY [facility]; Protocol Last Admin: 07/03/25 09:40 Dose: 12.5 mg Cyclobenzaprine HCl (Cyclobenzaprine Hcl 5 Mg Tablet) 5 mg PO TID PRN PRN Reason: muscle spasm-back Last Admin: 07/03/25 15:16 Dose: 5 mg Hydroxyzine HCl (Hydroxyzine Hcl 25 Mg Tablet) 25 mg PO Q6H PRN PRN Reason: mild anxiety Ibuprofen (Ibuprofen 600 Mg Tablet) 600 mg PO Q6H PRN PRN Reason: back pain Magnesium Hydroxide (Milk Of Magnesia 30 Ml Oral.Susp) 30 ml PO DAILY PRN PRN Reason: Constipation Methylphenidate HCl (Methylphenidate Hcl 10 Mg Tablet) 20 mg PO BID@0900,1400 [facility] Last Admin: 07/03/25 13:43 Dose: 20 mg Mirtazapine (Mirtazapine 15 Mg Tablet) 15 mg PO BEDTIME [facility] Last Admin: 07/02/25 23:17 Dose: 15 mg Multivitamins/Vitamin C (Multivitamin Tablet) 1 tab PO DAILY [facility] Last Admin: 07/03/25 09:40 Dose: 1 tab Nicotine (Nicotine 7 Mg Patch.Td24) 7 mg TRANSDERMA DAILY PRN PRN Reason: Nicotine Cravings Last Admin: 07/03/25 11:29 Dose: 7 mg Nicotine Polacrilex (Nicotine Polacrilex 2 Mg Gum) 2 mg BUCCAL Q2H PRN PRN Reason: Nicotine Cravings Last Admin: 07/03/25 13:43 Dose: 2 mg Omeprazole (Omeprazole 20 Mg Capsule.Dr) 20 mg PO DAILY@1630 [facility] Last Admin: 07/03/25 15:16 Dose: 20 mg Ondansetron HCl (Ondansetron Odt 4 Mg Tab.Rapdis) 4 mg TRANSLINGU Q6H PRN PRN Reason: Nausea and Vomiting Propranolol HCl (Propranolol Hcl 10 Mg Tablet) 10 mg PO BID [facility]; Protocol Last Admin: 07/03/25 09:40 Dose: 10 mg Sertraline HCl (Sertraline Hcl 100 Mg Tablet) 100 mg PO DAILY [facility] Last Admin: 07/03/25 09:40 Dose: 100 mg Timolol Maleate (Timolol Maleate 0.5 % Oph Yoko 5 Ml Drbtl) 1 drop EYE-BOTH BID [facility] Last Admin: 07/03/25 11:53 Dose: 1 drop Tramadol HCl (Tramadol Hcl 50 Mg Tablet) 25 mg PO Q4H PRN PRN Reason: back pain Last Admin: 07/03/25 13:42 Dose: 25 mg Trazodone HCl (Trazodone Hcl 50 Mg Tablet) 50 mg PO BEDTIME MRX1 PRN PRN Reason: Insomnia Triamcinolone Acetonide (Triamcinolone Acet 0.1 % Oint 15 Gm Tube) 1 appl TOPICAL BID PRN PRN Reason: rash trunk/rt arm Last Admin: 06/26/25 11:51 Dose: 1 appl Allergies Allergies Allergy/AdvReac Type Severity Reaction Status Date / Time No Known Allergies Allergy Verified 06/25/25 14:40 Assessment & Plan Assessment & Plan (1) Narcolepsy: Status: Acute Code(s): G47.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 He feels hopeless and not motivated, difficulty getting out of bed to complete tests. Patient recently moved to [place] from [place] a work. 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 Reports having SI with plan to commit suicide but did not disclosed. History of suicide attempts, history of previous inpatient psychiatric admission. Patient has not taking medication for about a week, not have outpatient providers in the area. Reports poor sleep, good appetite, anxious, chest tightness, panic attacks. Formulation/clinical reasoning: continue expressing hopeless feel, sad and depressed, none medication compliant, newly moved to [place] from [place], history of suicide attempts. History of PTSD, panic attack, and depression. Given the above information, patient could benefit in acute care setting/restrictive environment for his own safety, restart on medication, and refer patient to outpatient services in [place] for aftercare. Hospital course: 06/26/25: Restart on Meds Xanax 1mg BID PRN for panic attack Hospitalist will start on eye drop for Glaucoma. Gabapentin 300mg daily for nerve pain. Remeron 15mg at HS for imsomnia Vyvance for narcolepsy - substitute for methylphenidate 20 twice a day Coreg 12.5 for hypertension. Effexor 75mg daily for depression We will discuss if patient continued to take Effexor or was stopped. 06/27/25: Patient reports he slept well was up 3 times last night. Was medication compliant, denies side effects, denies suicidal thoughts or hallucinations. Reports anxiety high on 04/10, and depression is better. We discussed potential having bipolar behavior history, patient denies any bipolar behavior. Reports that his mom has bipolar so he is aware what is behavior look like. We discussed about anti depression medication, he does not like Effexor even though it was working for him when he take up to 225 mg. He prefer to start the Zoloft as a new antidepressant for anxiety/ panic attack/depression. We discussed side effects and indications. Reviewed lab results with patient with pending level of testosterone. We also discussed potential not taking Xanax as for now he basically has no definite insurance that can cover it. He appeared to be depressed, pacing attempt with helpful as a coping skills, quiet and keeps to himself. Not hyperverbal pressure speech. Discontinue effexor. Start Serialize 50 on 06/28/25. Monitor for side effects. Reviewed lab results. Pending Testosterone level. Add Multivitamin and Omeprazole daily per patient's request. 06/28 hopeful about sertraline trial, appears vigilant 06/29 - wanting gabapentin to be prn, hoping sertraline will help dep and ptsd sys- 06/30/25: Patient slept 8 hours, compliant with medications. Denies side effects new sertraline. Discussed with him regarding medication changes to target depression anxiety/PTSD. Patient is receptive with the plan Zoloft increased up to a 100mg. Patient requests to start on BuSpar 10 mg twice a day for anxiety as an add on. Change omeprazole to 16 30 instead of 6 3rd in the. Patient agreed to discontinue the gabapentin. Reports that continue to improve in anxiety and depression. He worries about how he going to get medication after discharge as he does not have insurance or ID. We discussed potential not going to give him the Xanax, as he does not have the ID therefore he will have trouble picking up the controlled medication. He talked about legs pain, take Tylenol but does not have. Motrin available but he has not trying. Encourage him to utilize it. We will not prescribe tramadol which he understands. Denies safety concerns. Mood is depressed, restrictive. Increase Sertraline 100mg daily for depression/PTSD. Buspar 10mg BID for anxiety. Omeprazole from 0630 to 1630 for better compliant. Discontinue Gapapentin 300mg PRN daily. Educate on using other PRN for anxiety prior asking for Xanax. 07/01: TDN to end 07/03. Back pain- low dose prn Flexeril/Tramadol Continue current regime 07/02/25: Patient reported that he was not able to sleep last night d/t his roommate who snored so loud at night. Because of lacking of sleep, he was not doing well this morning, affected his mood, was irritable and agitated early regarding meds this morning per nursing staff. patient able to feel calmer during assessment. Patient does not think he would be ready for tomorrow discharge follow by TDN signed on Monday. Patient reports that since restarted on meds, patient feels much better but want to make sure he has good safe discharge plan. SW explained to patient how correction system worked in [place]. Currently [facility] in [place] has no bed available this week. Patient also chooses to have PCP at [facility] to start. Potential to be discharged early next week. D/t insurance issues, there are anticipated some issue coverage with meds. Patient continues to explore more safer discharge plans: will continue to reach out to friends/family for placement. Has been called friends but has not heard from them. 07/03/25: Patient report sleep and appetite are better. Denies side effects. Denies side effects. Patient continue with with treatment team for aftercare plan, calling places and family/friends for better and safer discharge plan: pending results. Possible discharge next week. Patient appears to anxious and depressed. Plan Patient on 15 minute checks for safety. Admitted to . Restracted TDN on 07/02/25. Continue with current plan. Work with treatment team to do collateral. Discuss with hospitalist regarding medical condition. labs.Testoerone WNL. Reviewed with patient. diagnostic as needed Patient educated on: diagnosis, medication risk/benefits, substance abuse and therapeutic strategies Informed Consent: understands Reason for continued inpatient stay Substantial Risk for: med/psych decompensation Time Spent With Patient Time: Total time managing care of this patient today ____ minutes.
[2025-07-03 20:00] VITALS: BP 120/76; PULSE 78; RESP 20; TEMP 36.6; O2SAT 98
[2025-07-03 22:36] VITALS: BP 120/76; PULSE 79
[2025-07-04 08:00] VITALS: BP 124/76; PULSE 74; RESP 16; TEMP 36.3; O2SAT 99
[2025-07-04] MEDS: Nicotine 7 MG PATCH.TD24 TRANSDERMA (09:45)
[2025-07-04] MEDS: Aspirin Enteric Coated 81 MG TABLET.DR PO (09:45)
--- NOTE | 2025-07-04 16:38 | P.PNPSI_ITS ---
Subjective Subjective Date of Service: 07/04/25 Reason For Visit: Major depressive disorder, severe Subjective Notes: Conditional Voluntary Healthcare Proxy: No Guardianship: No Medical Problems Affecting Mental Status: No Interim History: Medical record and nursing notes reviewed; case discussed during rounds with team/nursing staff, and met with patient for supportive therapy/psychoeducation, as well as medication management. Meet with patient in art room, reports his roommate snoring loudly again and he could not sleep well. He appears to be depressed and tired but motivate and active on aftercare. Report that he sees himself improved in mood since restart on meds. Patient also met with SW regarding Retirement referrals. Expressed high in anxiety and depression regarding unknown plan yet but denies safety concerns while in the hospital. 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 Medication Compliance: Yes Side effects from medications: No Attending Groups: No Review of Systems Acute medical concerns: No Medical Review of Systems: unchanged Review of Systems Review of Systems Denies any shortness of breath, chest pain, dizziness, lightheadedness, abdominal pain or discomfort, nausea vomiting or diarrhea. Yes all other systems are reviewed and are negative Mental Status Exam Mental Status Exam Narrative: Patient is alert and oriented x4; behavior is cooperative, moderate depression and anxiety related to unsure of discharge and unsafe discharge plan; no irritable/agitated, patient is not in distress; dressed in hospital attire with kempt hair and adequate hygiene; mood is described as improving and affect congruent; eye contact appropriate; Speech is normal rate, volume and prosody and not pressured; no psychomotor agitation/retardation present; thought process is organized and goal directed, linea; Thought content is WNL, worry about aftercare in term of coverage for medication , pertinent to relevant topics and without any delusional content, paranoid ideation or grandiosity; denies any SIB/HI. Denies AH and there is no evidence of perceptual disturbance. Patient's insight fair and judgment improved. Diagnostics Vital Signs (24Hr): Vital Signs - 24 hr 07/03/25 20:00 07/03/25 22:36 07/04/25 08:00 Temperature 97.8 F 97.4 F Pulse Rate 78 79 74 Respiratory Rate 20 16 Blood Pressure 120/76 120/76 124/76 Pulse Oximetry 98 99 Oxygen Delivery Method Room Air Room Air BMI result Body Mass Index 22.6 Labs 06/26/25 07:49 Medications Medications Current Medications Acetaminophen (Acetaminophen 325 Mg Tablet) 650 mg PO Q6H PRN PRN Reason: Headache/Pain, Scale 1-10 Last Admin: 07/01/25 06:14 Dose: 650 mg Al Hydroxide/Mg Hydroxide (Magnesium Hydrox/Alum Hydrox 30 Ml Oral.Susp) 30 ml PO Q6H PRN PRN Reason: Heartburn/Nausea Alprazolam (Alprazolam 0.5 Mg Tablet) 1 mg PO BID PRN PRN Reason: panic attack Last Admin: 07/04/25 15:54 Dose: 1 mg Aspirin (Aspirin Enteric Coated 81 Mg Tablet.Dr) 81 mg PO DAILY [facility] Last Admin: 07/04/25 09:45 Dose: 81 mg Atorvastatin Calcium (Atorvastatin Calcium 40 Mg Tablet) 40 mg PO BEDTIME [facility] Last Admin: 07/03/25 22:35 Dose: 40 mg Brimonidine Tartrate (Brimonidine Tartrate 0.2% Oph 5 Ml Bottle) 1 drop EYE- BOTH BID [facility] Last Admin: 07/03/25 22:46 Dose: Not Given Buspirone HCl (Buspirone Hcl 10 Mg Tablet) 10 mg PO DAILY@1200,2100 [facility] Last Admin: 07/04/25 14:02 Dose: 10 mg Carvedilol (Carvedilol 12.5 Mg Tablet) 12.5 mg PO DAILY [facility]; Protocol Last Admin: 07/04/25 09:46 Dose: 12.5 mg Cyclobenzaprine HCl (Cyclobenzaprine Hcl 5 Mg Tablet) 5 mg PO TID PRN PRN Reason: muscle spasm-back Last Admin: 07/04/25 15:55 Dose: 5 mg Hydroxyzine HCl (Hydroxyzine Hcl 25 Mg Tablet) 25 mg PO Q6H PRN PRN Reason: mild anxiety Ibuprofen (Ibuprofen 600 Mg Tablet) 600 mg PO Q6H PRN PRN Reason: back pain Magnesium Hydroxide (Milk Of Magnesia 30 Ml Oral.Susp) 30 ml PO DAILY PRN PRN Reason: Constipation Methylphenidate HCl (Methylphenidate Hcl 10 Mg Tablet) 20 mg PO BID@0900,1400 [facility] Last Admin: 07/04/25 14:02 Dose: 20 mg Mirtazapine (Mirtazapine 15 Mg Tablet) 15 mg PO BEDTIME [facility] Last Admin: 07/03/25 22:35 Dose: 15 mg Multivitamins/Vitamin C (Multivitamin Tablet) 1 tab PO DAILY [facility] Last Admin: 07/04/25 09:46 Dose: 1 tab Nicotine (Nicotine 7 Mg Patch.Td24) 7 mg TRANSDERMA DAILY PRN PRN Reason: Nicotine Cravings Last Admin: 07/04/25 09:45 Dose: 7 mg Nicotine Polacrilex (Nicotine Polacrilex 2 Mg Gum) 2 mg BUCCAL Q2H PRN PRN Reason: Nicotine Cravings Last Admin: 07/04/25 14:05 Dose: 2 mg Omeprazole (Omeprazole 20 Mg Capsule.Dr) 20 mg PO DAILY@1630 [facility] Last Admin: 07/03/25 15:16 Dose: 20 mg Ondansetron HCl (Ondansetron Odt 4 Mg Tab.Rapdis) 4 mg TRANSLINGU Q6H PRN PRN Reason: Nausea and Vomiting Propranolol HCl (Propranolol Hcl 10 Mg Tablet) 10 mg PO BID [facility]; Protocol Last Admin: 07/04/25 09:45 Dose: 10 mg Sertraline HCl (Sertraline Hcl 100 Mg Tablet) 100 mg PO DAILY [facility] Last Admin: 07/04/25 09:45 Dose: 100 mg Timolol Maleate (Timolol Maleate 0.5 % Oph Yoko 5 Ml Drbtl) 1 drop EYE-BOTH BID [facility] Last Admin: 07/03/25 22:46 Dose: Not Given Tramadol HCl (Tramadol Hcl 50 Mg Tablet) 25 mg PO Q4H PRN PRN Reason: back pain Last Admin: 07/04/25 14:02 Dose: 25 mg Trazodone HCl (Trazodone Hcl 50 Mg Tablet) 50 mg PO BEDTIME MRX1 PRN PRN Reason: Insomnia Triamcinolone Acetonide (Triamcinolone Acet 0.1 % Oint 15 Gm Tube) 1 appl TOPICAL BID PRN PRN Reason: rash trunk/rt arm Last Admin: 06/26/25 11:51 Dose: 1 appl Allergies Allergies Allergy/AdvReac Type Severity Reaction Status Date / Time No Known Allergies Allergy Verified 06/25/25 14:40 Assessment & Plan Assessment & Plan (1) Narcolepsy: Status: Acute Code(s): G47.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 He feels hopeless and not motivated, difficulty getting out of bed to complete tests. Patient recently moved to [place] from [place] a work. 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 Reports having SI with plan to commit suicide but did not disclosed. History of suicide attempts, history of previous inpatient psychiatric admission. Patient has not taking medication for about a week, not have outpatient providers in the area. Reports poor sleep, good appetite, anxious, chest tightness, panic attacks. Formulation/clinical reasoning: continue expressing hopeless feel, sad and depressed, none medication compliant, newly moved to [place] from [place], history of suicide attempts. History of PTSD, panic attack, and depression. Given the above information, patient could benefit in acute care setting/restrictive environment for his own safety, restart on medication, and refer patient to outpatient services in [place] for aftercare. Hospital course: 06/26/25: Restart on Meds Xanax 1mg BID PRN for panic attack Hospitalist will start on eye drop for Glaucoma. Gabapentin 300mg daily for nerve pain. Remeron 15mg at HS for imsomnia Vyvance for narcolepsy - substitute for methylphenidate 20 twice a day Coreg 12.5 for hypertension. Effexor 75mg daily for depression We will discuss if patient continued to take Effexor or was stopped. 06/27/25: Patient reports he slept well was up 3 times last night. Was medication compliant, denies side effects, denies suicidal thoughts or hallucinations. Reports anxiety high on 04/10, and depression is better. We discussed potential having bipolar behavior history, patient denies any bipolar behavior. Reports that his mom has bipolar so he is aware what is behavior look like. We discussed about anti depression medication, he does not like Effexor even though it was working for him when he take up to 225 mg. He prefer to start the Zoloft as a new antidepressant for anxiety/ panic attack/depression. We discussed side effects and indications. Reviewed lab results with patient with pending level of testosterone. We also discussed potential not taking Xanax as for now he basically has no definite insurance that can cover it. He appeared to be depressed, pacing attempt with helpful as a coping skills, quiet and keeps to himself. Not hyperverbal pressure speech. Discontinue effexor. Start Serialize 50 on 06/28/25. Monitor for side effects. Reviewed lab results. Pending Testosterone level. Add Multivitamin and Omeprazole daily per patient's request. 06/28 hopeful about sertraline trial, appears vigilant 06/29 - wanting gabapentin to be prn, hoping sertraline will help dep and ptsd sys- 06/30/25: Patient slept 8 hours, compliant with medications. Denies side effects new sertraline. Discussed with him regarding medication changes to target depression anxiety/PTSD. Patient is receptive with the plan Zoloft increased up to a 100mg. Patient requests to start on BuSpar 10 mg twice a day for anxiety as an add on. Change omeprazole to 16 30 instead of 6 3rd in the. Patient agreed to discontinue the gabapentin. Reports that continue to improve in anxiety and depression. He worries about how he going to get medication after discharge as he does not have insurance or ID. We discussed potential not going to give him the Xanax, as he does not have the ID therefore he will have trouble picking up the controlled medication. He talked about legs pain, take Tylenol but does not have. Motrin available but he has not trying. Encourage him to utilize it. We will not prescribe tramadol which he understands. Denies safety concerns. Mood is depressed, restrictive. Increase Sertraline 100mg daily for depression/PTSD. Buspar 10mg BID for anxiety. Omeprazole from 0630 to 1630 for better compliant. Discontinue Gapapentin 300mg PRN daily. Educate on using other PRN for anxiety prior asking for Xanax. 07/01: TDN to end 07/03. Back pain- low dose prn Flexeril/Tramadol Continue current regime 07/02/25: Patient reported that he was not able to sleep last night d/t his roommate who snored so loud at night. Because of lacking of sleep, he was not doing well this morning, affected his mood, was irritable and agitated early regarding meds this morning per nursing staff. patient able to feel calmer during assessment. Patient does not think he would be ready for tomorrow discharge follow by TDN signed on Monday. Patient reports that since restarted on meds, patient feels much better but want to make sure he has good safe discharge plan. SW explained to patient how [facility] system worked in [place]. Currently [facility] in [place] has no bed available this week. Patient also chooses to have PCP at [facility] to start. Potential to be discharged early next week. D/t insurance issues, there are anticipated some issue coverage with meds. Patient continues to explore more safer discharge plans: will continue to reach out to friends/family for placement. Has been called friends but has not heard from them. 07/03/25: Patient report sleep and appetite are better. Denies side effects. Denies side effects. Patient continue with with treatment team for aftercare plan, calling places and family/friends for better and safer discharge plan: pending results. Possible discharge next week. Patient appears to anxious and depressed. 07/04/25: Meet with patient in art room, reports his roommate snoring loudly again and he could not sleep well. He appears to be depressed and tired but motivate and active on aftercare. Report that he sees himself improved in mood since restart on meds. Patient also met with SW regarding Retirement referrals. Expressed high in anxiety and depression regarding unknown plan yet but denies safety concerns while in the hospital. 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 Plan Patient on 15 minute checks for safety. Admitted to . Restracted TDN on 07/02/25. Continue with current plan. Tentative discharge on Monday07/07/25 once bed available at [facility]. Work with treatment team to do collateral. Discuss with hospitalist regarding medical condition. labs.Testoerone WNL. Reviewed with patient. diagnostic as needed Patient educated on: diagnosis, medication risk/benefits, substance abuse and therapeutic strategies Informed Consent: understands Reason for continued inpatient stay Substantial Risk for: med/psych decompensation Time Spent With Patient Time: Total time managing care of this patient today ____ minutes.
[2025-07-04 20:00] VITALS: BP 97/56; PULSE 98; RESP 16; TEMP 36.6; O2SAT 100
[2025-07-04 22:50] VITALS: BP 128/79; PULSE 62
[2025-07-04 23:12] VITALS: BP 128/79; PULSE 62
[2025-07-05] MEDS: Brimonidine Tartrate 0.2% Oph 5 ML BOTTLE 1 DROP EYE-BOTH (10:23)
[2025-07-05] MEDS: timoloL maleate 0.5 % Oph Sol 5 ML DRBTL 1 DROP EYE-BOTH (10:23)
[2025-07-05 10:24] VITALS: BP 175/75; PULSE 86
[2025-07-05] MEDS: Aspirin Enteric Coated 81 MG TABLET.DR PO (10:24)
[2025-07-05] MEDS: Nicotine 7 MG PATCH.TD24 TRANSDERMA (11:19)
--- NOTE | 2025-07-05 16:32 | HO.PSYCHPN ---
Subjective Subjective Date of Service: 07/05/25 Reason For Visit: Major depressive disorder, severe Subjective Notes: Conditional Voluntary Healthcare Proxy: No Guardianship: No Medical Problems Affecting Mental Status: No Interim History: Medical record and nursing notes reviewed; case discussed during rounds with team/nursing staff, and met with patient for supportive therapy/psychoeducation, as well as medication management. Meet with patient in room, reports he did not sleep well as roommate was snoring loudly. Reviewed with patient regarding meds sent out to pharmacy. Patient report tramadol low dose is not helpful but understand that will not increased. Patient to FLU with PCP regarding back pain to get referral to get his back check out which is chronic pain. No acute problems. Wait to hear from [facility] and other [facility]. Medication Compliance: Yes (Except eye drop) Side effects from medications: No Attending Groups: Intermittent Review of Systems Acute medical concerns: No Medical Review of Systems: unchanged Review of Systems Review of Systems Denies any shortness of breath, chest pain, dizziness, lightheadedness, abdominal pain or discomfort, nausea vomiting or diarrhea. Yes all other systems are reviewed and are negative Mental Status Exam Mental Status Exam Narrative: Patient is alert and oriented x4; behavior is cooperative, moderate depression and anxiety related to unsure of discharge and unsafe discharge plan; no irritable/agitated, patient is not in distress; dressed in hospital attire with kempt hair and adequate hygiene; mood is described as improving and affect congruent; eye contact appropriate; Speech is normal rate, volume and prosody and not pressured; no psychomotor agitation/retardation present; thought process is organized and goal directed, linea; Thought content is WNL, worry about aftercare in term of coverage for medication , pertinent to relevant topics and without any delusional content, paranoid ideation or grandiosity; denies any SIB/HI. Denies AH and there is no evidence of perceptual disturbance. Patient's insight fair and judgment improved. Diagnostics Vital Signs (24Hr): Vital Signs - 24 hr 07/04/25 20:00 07/04/25 22:50 07/04/25 23:12 Temperature 97.9 F Pulse Rate 98 62 62 Respiratory Rate 16 Blood Pressure 97/56 L 128/79 128/79 Pulse Oximetry 100 Oxygen Delivery Method Room Air 07/05/25 10:24 Temperature Pulse Rate 86 Respiratory Rate Blood Pressure 175/75 H Pulse Oximetry Oxygen Delivery Method BMI result Body Mass Index 22.6 Labs 06/26/25 07:49 Medications Medications Current Medications Acetaminophen (Acetaminophen 325 Mg Tablet) 650 mg PO Q6H PRN PRN Reason: Headache/Pain, Scale 1-10 Last Admin: 07/01/25 06:14 Dose: 650 mg Al Hydroxide/Mg Hydroxide (Magnesium Hydrox/Alum Hydrox 30 Ml Oral.Susp) 30 ml PO Q6H PRN PRN Reason: Heartburn/Nausea Alprazolam (Alprazolam 0.5 Mg Tablet) 1 mg PO BID PRN PRN Reason: panic attack Last Admin: 07/05/25 04:11 Dose: 1 mg Aspirin (Aspirin Enteric Coated 81 Mg Tablet.Dr) 81 mg PO DAILY [facility] Last Admin: 07/05/25 10:24 Dose: 81 mg Atorvastatin Calcium (Atorvastatin Calcium 40 Mg Tablet) 40 mg PO BEDTIME [facility] Last Admin: 07/04/25 23:12 Dose: 40 mg Brimonidine Tartrate (Brimonidine Tartrate 0.2% Oph 5 Ml Bottle) 1 drop EYE-BOTH BID [facility] Last Admin: 07/05/25 10:23 Dose: 1 drop Buspirone HCl (Buspirone Hcl 10 Mg Tablet) 10 mg PO DAILY@1200,2100 [facility] Last Admin: 07/05/25 13:48 Dose: Not Given Carvedilol (Carvedilol 12.5 Mg Tablet) 12.5 mg PO DAILY [facility]; Protocol Last Admin: 07/05/25 10:24 Dose: 12.5 mg Cyclobenzaprine HCl (Cyclobenzaprine Hcl 5 Mg Tablet) 5 mg PO TID PRN PRN Reason: muscle spasm-back Last Admin: 07/04/25 23:14 Dose: 5 mg Hydroxyzine HCl (Hydroxyzine Hcl 25 Mg Tablet) 25 mg PO Q6H PRN PRN Reason: mild anxiety Ibuprofen (Ibuprofen 600 Mg Tablet) 600 mg PO Q6H PRN PRN Reason: back pain Magnesium Hydroxide (Milk Of Magnesia 30 Ml Oral.Susp) 30 ml PO DAILY PRN PRN Reason: Constipation Methylphenidate HCl (Methylphenidate Hcl 10 Mg Tablet) 20 mg PO BID@0900,1400 [facility] Last Admin: 07/05/25 13:22 Dose: 20 mg Mirtazapine (Mirtazapine 15 Mg Tablet) 15 mg PO BEDTIME [facility] Last Admin: 10/03/25 23:12 Dose: 15 mg Multivitamins/Vitamin C (Multivitamin Tablet) 1 tab PO DAILY [facility] Last Admin: 07/05/25 10:24 Dose: 1 tab Nicotine (Nicotine 7 Mg Patch.Td24) 7 mg TRANSDERMA DAILY PRN PRN Reason: Nicotine Cravings Last Admin: 07/05/25 11:19 Dose: 7 mg Nicotine Polacrilex (Nicotine Polacrilex 2 Mg Gum) 2 mg BUCCAL Q2H PRN PRN Reason: Nicotine Cravings Last Admin: 07/05/25 13:22 Dose: 2 mg Omeprazole (Omeprazole 20 Mg Capsule.Dr) 20 mg PO DAILY@1630 [facility] Last Admin: 07/04/25 17:27 Dose: 20 mg Ondansetron HCl (Ondansetron Odt 4 Mg Tab.Rapdis) 4 mg TRANSLINGU Q6H PRN PRN Reason: Nausea and Vomiting Propranolol HCl (Propranolol Hcl 10 Mg Tablet) 10 mg PO BID [facility]; Protocol Last Admin: 07/05/25 10:24 Dose: 10 mg Sertraline HCl (Sertraline Hcl 100 Mg Tablet) 100 mg PO DAILY [facility] Last Admin: 07/05/25 10:24 Dose: 100 mg Timolol Maleate (Timolol Maleate 0.5 % Oph Yoko 5 Ml Drbtl) 1 drop EYE-BOTH BID [facility] Last Admin: 07/05/25 10:23 Dose: 1 drop Tramadol HCl (Tramadol Hcl 50 Mg Tablet) 25 mg PO Q4H PRN PRN Reason: back pain Last Admin: 07/05/25 15:25 Dose: 25 mg Trazodone HCl (Trazodone Hcl 50 Mg Tablet) 50 mg PO BEDTIME MRX1 PRN PRN Reason: Insomnia Triamcinolone Acetonide (Triamcinolone Acet 0.1 % Oint 15 Gm Tube) 1 appl TOPICAL BID PRN PRN Reason: rash trunk/rt arm Last Admin: 06/26/25 11:51 Dose: 1 appl Allergies Allergies Allergy/AdvReac Type Severity Reaction Status Date / Time No Known Allergies Allergy Verified 06/25/25 14:40 Assessment & Plan Assessment & Plan (1) Narcolepsy: Status: Acute Code(s): G47.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 He feels hopeless and not motivated, difficulty getting out of bed to complete tests. Patient recently moved to [place] from [place] a work. 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 Reports having SI with plan to commit suicide but did not disclosed. History of suicide attempts, history of previous inpatient psychiatric admission. Patient has not taking medication for about a week, not have outpatient providers in the area. Reports poor sleep, good appetite, anxious, chest tightness, panic attacks. Formulation/clinical reasoning: continue expressing hopeless feel, sad and depressed, none medication compliant, newly moved to [place] from [place], history of suicide attempts. History of PTSD, panic attack, and depression. Given the above information, patient could benefit in acute care setting/restrictive environment for his own safety, restart on medication, and refer patient to outpatient services in [place] for aftercare. Hospital course: 06/26/25: Restart on Meds Xanax 1mg BID PRN for panic attack Hospitalist will start on eye drop for Glaucoma. Gabapentin 300mg daily for nerve pain. Remeron 15mg at HS for imsomnia Vyvance for narcolepsy - substitute for methylphenidate 20 twice a day Coreg 12.5 for hypertension. Effexor 75mg daily for depression We will discuss if patient continued to take Effexor or was stopped. 06/27/25: Patient reports he slept well was up 3 times last night. Was medication compliant, denies side effects, denies suicidal thoughts or hallucinations. Reports anxiety high on 04/10, and depression is better. We discussed potential having bipolar behavior history, patient denies any bipolar behavior. Reports that his mom has bipolar so he is aware what is behavior look like. We discussed about anti depression medication, he does not like Effexor even though it was working for him when he take up to 225 mg. He prefer to start the Zoloft as a new antidepressant for anxiety/ panic attack/depression. We discussed side effects and indications. Reviewed lab results with patient with pending level of testosterone. We also discussed potential not taking Xanax as for now he basically has no definite insurance that can cover it. He appeared to be depressed, pacing attempt with helpful as a coping skills, quiet and keeps to himself. Not hyperverbal pressure speech. Discontinue effexor. Start Serialize 50 on 06/28/25. Monitor for side effects. Reviewed lab results. Pending Testosterone level. Add Multivitamin and Omeprazole daily per patient's request. 06/28 hopeful about sertraline trial, appears vigilant 06/29 - wanting gabapentin to be prn, hoping sertraline will help dep and ptsd sys- 06/30/25: Patient slept 8 hours, compliant with medications. Denies side effects new sertraline. Discussed with him regarding medication changes to target depression anxiety/PTSD. Patient is receptive with the plan Zoloft increased up to a 100mg. Patient requests to start on BuSpar 10 mg twice a day for anxiety as an add on. Change omeprazole to 16 30 instead of 6 3rd in the. Patient agreed to discontinue the gabapentin. Reports that continue to improve in anxiety and depression. He worries about how he going to get medication after discharge as he does not have insurance or ID. We discussed potential not going to give him the Xanax, as he does not have the ID therefore he will have trouble picking up the controlled medication. He talked about legs pain, take Tylenol but does not have. Motrin available but he has not trying. Encourage him to utilize it. We will not prescribe tramadol which he understands. Denies safety concerns. Mood is depressed, restrictive. Increase Sertraline 100mg daily for depression/PTSD. Buspar 10mg BID for anxiety. Omeprazole from 0630 to 1630 for better compliant. Discontinue Gapapentin 300mg PRN daily. Educate on using other PRN for anxiety prior asking for Xanax. 07/01: TDN to end 07/03. Back pain- low dose prn Flexeril/Tramadol Continue current regime 07/02/25: Patient reported that he was not able to sleep last night d/t his roommate who snored so loud at night. Because of lacking of sleep, he was not doing well this morning, affected his mood, was irritable and agitated early regarding meds this morning per nursing staff. patient able to feel calmer during assessment. Patient does not think he would be ready for tomorrow discharge follow by TDN signed on Monday. Patient reports that since restarted on meds, patient feels much better but want to make sure he has good safe discharge plan. SW explained to patient how [facility] system worked in [place]. Currently [facility] in [place] has no bed available this week. Patient also chooses to have PCP at [facility] to start. Potential to be discharged early next week. D/t insurance issues, there are anticipated some issue coverage with meds. Patient continues to explore more safer discharge plans: will continue to reach out to friends/family for placement. Has been called friends but has not heard from them. 07/03/25: Patient report sleep and appetite are better. Denies side effects. Denies side effects. Patient continue with with treatment team for aftercare plan, calling places and family/friends for better and safer discharge plan: pending results. Possible discharge next week. Patient appears to anxious and depressed. 07/04/25: Meet with patient in art room, reports his roommate snoring loudly again and he could not sleep well. He appears to be depressed and tired but motivate and active on aftercare. Report that he sees himself improved in mood since restart on meds. Patient also met with SW regarding [facility] referrals. Expressed high in anxiety and depression regarding unknown plan yet but denies safety concerns while in the hospital. Working on sending meds to [facility] as patient does not have ID to hop picker meds if sent to other pharmacy. 07/05/25: Meet with patient in room, reports he did not sleep well as roommate was snoring loudly. Reviewed with patient regarding meds sent out to pharmacy. Patient report tramadol low dose is not helpful but understand that will not increased. Patient to FLU with PCP regarding back pain to get referral to get his back check out which is chronic pain. No acute problems. Wait to hear from [facility] and other [facility]. Monitor for BP, elevated this morning. Plan Patient on 15 minute checks for safety. Admitted to . Restracted TDN on 07/02/25. Continue with current plan. Tentative discharge on Monday07/07/25 once bed available at [facility]. Work with treatment team to do collateral. Discuss with hospitalist regarding medical condition. labs.Testoerone WNL. Reviewed with patient. diagnostic as needed Patient educated on: medication risk/benefits and therapeutic strategies Informed Consent: understands Reason for continued inpatient stay Substantial Risk for: med/psych decompensation Time Spent With Patient Time: Total time managing care of this patient today ____ minutes.
[2025-07-05 19:44] VITALS: RESP 16
[2025-07-06] MEDS: Aspirin Enteric Coated 81 MG TABLET.DR PO (08:40)
[2025-07-06] MEDS: timoloL maleate 0.5 % Oph Sol 5 ML DRBTL 1 DROP EYE-BOTH ×2 (08:41→20:42)
[2025-07-06] MEDS: Brimonidine Tartrate 0.2% Oph 5 ML BOTTLE 1 DROP EYE-BOTH ×2 (08:41→20:42)
[2025-07-06 11:03] VITALS: BP 134/92; PULSE 77; RESP 18; TEMP 36.5; O2SAT 100
[2025-07-06 11:06] VITALS: BP 134/92; PULSE 77
[2025-07-06 11:07] VITALS: BP 134/92; PULSE 77
[2025-07-06] MEDS: Nicotine 7 MG PATCH.TD24 TRANSDERMA (11:07)
[2025-07-06] MEDS: Triamcinolone Acet 0.1 % Oint 15 GM TUBE 1 APPL TOPICAL (18:07)
--- NOTE | 2025-07-06 18:18 | HO.PSYCHPN ---
Subjective Subjective Date of Service: 07/06/25 Reason For Visit: Major depressive disorder, severe Subjective Notes: Conditional Voluntary Healthcare Proxy: No Guardianship: No Medical Problems Affecting Mental Status: No Interim History: Medical record and nursing notes reviewed; case discussed during rounds with team/nursing staff, and met with patient for supportive therapy/psychoeducation, as well as medication management. Slept for 6 hours, however complain not able to sleep well because of roommate who snores loudly. Refused medications yesterday morning, blood pressure slightly elevated yesterday. Reports medication are helpful for mood. Feel like he needs more time to figure out safe for discharge plan, asked for now unsure of where he is going. He good like to stay a couple of more days to figure out where he is going. He could stay at his brother house in [place] with this new. Also waiting for [facility]pc bed. Denies safety concerns, anxiety and worries regarding discharge. Per nursing, patient had bowel movement in the bathroom and pushing it down to the drain which has been going on, but today nursing confirmed that it was him. Medication Compliance: Intermittent Side effects from medications: No Attending Groups: Intermittent Review of Systems Acute medical concerns: No Medical Review of Systems: unchanged Review of Systems Review of Systems Denies any shortness of breath, chest pain, dizziness, lightheadedness, abdominal pain or discomfort, nausea vomiting or diarrhea. Yes all other systems are reviewed and are negative Mental Status Exam Mental Status Exam Narrative: Patient is alert and oriented x4; behavior is cooperative, moderate depression and anxiety related to unsure of discharge and unsafe discharge plan; no irritable/agitated, patient is not in distress; dressed in hospital attire with kempt hair and adequate hygiene; mood is described as improving and affect congruent; eye contact appropriate; Speech is normal rate, volume and prosody and not pressured; no psychomotor agitation/retardation present; thought process is organized and goal directed, linea; Thought content is WNL, worry about aftercare in term of coverage for medication , pertinent to relevant topics and without any delusional content, paranoid ideation or grandiosity; denies any SIB/HI. Denies AH and there is no evidence of perceptual disturbance. Patient's insight fair and judgment improved. Diagnostics Vital Signs (24Hr): Vital Signs - 24 hr 07/05/25 19:44 07/06/25 11:03 07/06/25 11:06 Temperature 97.7 F Pulse Rate 77 77 Respiratory Rate 16 18 Blood Pressure 134/92 H 134/92 H Pulse Oximetry 100 Oxygen Delivery Method Room Air 07/06/25 11:07 Temperature Pulse Rate 77 Respiratory Rate Blood Pressure 134/92 H Pulse Oximetry Oxygen Delivery Method BMI result Body Mass Index 22.6 Labs 06/26/25 07:49 Medications Medications Current Medications Acetaminophen (Acetaminophen 325 Mg Tablet) 650 mg PO Q6H PRN PRN Reason: Headache/Pain, Scale 1-10 Last Admin: 07/01/25 06:14 Dose: 650 mg Al Hydroxide/Mg Hydroxide (Magnesium Hydrox/Alum Hydrox 30 Ml Oral.Susp) 30 ml PO Q6H PRN PRN Reason: Heartburn/Nausea Alprazolam (Alprazolam 0.5 Mg Tablet) 1 mg PO BID PRN PRN Reason: panic attack Last Admin: 07/06/25 16:51 Dose: 1 mg Aspirin (Aspirin Enteric Coated 81 Mg Tablet.) 81 mg PO DAILY [facility] Last Admin: 07/06/25 08:40 Dose: 81 mg Atorvastatin Calcium (Atorvastatin Calcium 40 Mg Tablet) 40 mg PO BEDTIME [facility] Last Admin: 07/05/25 20:52 Dose: 40 mg Brimonidine Tartrate (Brimonidine Tartrate 0.2% Oph 5 Ml Bottle) 1 drop EYE-BOTH BID [facility] Last Admin: 07/06/25 08:41 Dose: 1 drop Buspirone HCl (Buspirone Hcl 10 Mg Tablet) 10 mg PO DAILY@1200,2100 [facility] Last Admin: 07/06/25 15:25 Dose: Not Given Carvedilol (Carvedilol 12.5 Mg Tablet) 12.5 mg PO DAILY [facility]; Protocol Last Admin: 07/06/25 11:07 Dose: 12.5 mg Cyclobenzaprine HCl (Cyclobenzaprine Hcl 5 Mg Tablet) 5 mg PO TID PRN PRN Reason: muscle spasm-back Last Admin: 07/06/25 18:05 Dose: 5 mg Hydroxyzine HCl (Hydroxyzine Hcl 25 Mg Tablet) 25 mg PO Q6H PRN PRN Reason: mild anxiety Ibuprofen (Ibuprofen 600 Mg Tablet) 600 mg PO Q6H PRN PRN Reason: back pain Magnesium Hydroxide (Milk Of Magnesia 30 Ml Oral.Susp) 30 ml PO DAILY PRN PRN Reason: Constipation Methylphenidate HCl (Methylphenidate Hcl 10 Mg Tablet) 20 mg PO BID@0900,1400 [facility] Last Admin: 07/06/25 14:15 Dose: 20 mg Mirtazapine (Mirtazapine 15 Mg Tablet) 15 mg PO BEDTIME [facility] Last Admin: 07/05/25 23:12 Dose: 15 mg Multivitamins/Vitamin C (Multivitamin Tablet) 1 tab PO DAILY [facility] Last Admin: 07/06/25 08:40 Dose: 1 tab Nicotine (Nicotine 7 Mg Patch.Td24) 7 mg TRANSDERMA DAILY PRN PRN Reason: Nicotine Cravings Last Admin: 07/06/25 11:07 Dose: 7 mg Nicotine Polacrilex (Nicotine Polacrilex 2 Mg Gum) 2 mg BUCCAL Q2H PRN PRN Reason: Nicotine Cravings Last Admin: 07/06/25 18:05 Dose: 2 mg Omeprazole (Omeprazole 20 Mg Capsule.Dr) 20 mg PO DAILY@1630 [facility] Last Admin: 07/06/25 15:59 Dose: 20 mg Ondansetron HCl (Ondansetron Odt 4 Mg Tab.Rapdis) 4 mg TRANSLINGU Q6H PRN PRN Reason: Nausea and Vomiting Propranolol HCl (Propranolol Hcl 10 Mg Tablet) 10 mg PO BID [facility]; Protocol Last Admin: 07/06/25 11:06 Dose: 10 mg Sertraline HCl (Sertraline Hcl 100 Mg Tablet) 100 mg PO DAILY [facility] Last Admin: 07/06/25 08:41 Dose: 100 mg Timolol Maleate (Timolol Maleate 0.5 % Oph Yoko 5 Ml Drbtl) 1 drop EYE-BOTH BID [facility] Last Admin: 07/06/25 08:41 Dose: 1 drop Tramadol HCl (Tramadol Hcl 50 Mg Tablet) 25 mg PO Q4H PRN PRN Reason: back pain Last Admin: 07/06/25 16:47 Dose: 25 mg Trazodone HCl (Trazodone Hcl 50 Mg Tablet) 50 mg PO BEDTIME MRX1 PRN PRN Reason: Insomnia Triamcinolone Acetonide (Triamcinolone Acet 0.1 % Oint 15 Gm Tube) 1 appl TOPICAL BID PRN PRN Reason: rash trunk/rt arm Last Admin: 07/06/25 18:07 Dose: 1 appl Allergies Allergies Allergy/AdvReac Type Severity Reaction Status Date / Time No Known Allergies Allergy Verified 06/25/25 14:40 Assessment & Plan Assessment & Plan (1) Narcolepsy: Status: Acute Code(s): G47.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 He feels hopeless and not motivated, difficulty getting out of bed to complete tests. Patient recently moved to [place] from [place] a work. 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 Reports having SI with plan to commit suicide but did not disclosed. History of suicide attempts, history of previous inpatient psychiatric admission. Patient has not taking medication for about a week, not have outpatient providers in the area. Reports poor sleep, good appetite, anxious, chest tightness, panic attacks. Formulation/clinical reasoning: continue expressing hopeless feel, sad and depressed, none medication compliant, newly moved to [place] from [place], history of suicide attempts. History of PTSD, panic attack, and depression. Given the above information, patient could benefit in acute care setting/restrictive environment for his own safety, restart on medication, and refer patient to outpatient services in [place] for aftercare. Hospital course: 06/26/25: Restart on Meds Xanax 1mg BID PRN for panic attack Hospitalist will start on eye drop for Glaucoma. Gabapentin 300mg daily for nerve pain. Remeron 15mg at HS for imsomnia Vyvance for narcolepsy - substitute for methylphenidate 20 twice a day Coreg 12.5 for hypertension. Effexor 75mg daily for depression We will discuss if patient continued to take Effexor or was stopped. 06/27/25: Patient reports he slept well was up 3 times last night. Was medication compliant, denies side effects, denies suicidal thoughts or hallucinations. Reports anxiety high on 04/10, and depression is better. We discussed potential having bipolar behavior history, patient denies any bipolar behavior. Reports that his mom has bipolar so he is aware what is behavior look like. We discussed about anti depression medication, he does not like Effexor even though it was working for him when he take up to 225 mg. He prefer to start the Zoloft as a new antidepressant for anxiety/ panic attack/depression. We discussed side effects and indications. Reviewed lab results with patient with pending level of testosterone. We also discussed potential not taking Xanax as for now he basically has no definite insurance that can cover it. He appeared to be depressed, pacing attempt with helpful as a coping skills, quiet and keeps to himself. Not hyperverbal pressure speech. Discontinue effexor. Start Serialize 50 on 06/28/25. Monitor for side effects. Reviewed lab results. Pending Testosterone level. Add Multivitamin and Omeprazole daily per patient's request. 06/28 hopeful about sertraline trial, appears vigilant 06/29 - wanting gabapentin to be prn, hoping sertraline will help dep and ptsd sys- 06/30/25: Patient slept 8 hours, compliant with medications. Denies side effects new sertraline. Discussed with him regarding medication changes to target depression anxiety/PTSD. Patient is receptive with the plan Zoloft increased up to a 100mg. Patient requests to start on BuSpar 10 mg twice a day for anxiety as an add on. Change omeprazole to 16 30 instead of 6 3rd in the. Patient agreed to discontinue the gabapentin. Reports that continue to improve in anxiety and depression. He worries about how he going to get medication after discharge as he does not have insurance or ID. We discussed potential not going to give him the Xanax, as he does not have the ID therefore he will have trouble picking up the controlled medication. He talked about legs pain, take Tylenol but does not have. Motrin available but he has not trying. Encourage him to utilize it. We will not prescribe tramadol which he understands. Denies safety concerns. Mood is depressed, restrictive. Increase Sertraline 100mg daily for depression/PTSD. Buspar 10mg BID for anxiety. Omeprazole from 0630 to 1630 for better compliant. Discontinue Gapapentin 300mg PRN daily. Educate on using other PRN for anxiety prior asking for Xanax. 07/01: TDN to end 07/03. Back pain- low dose prn Flexeril/Tramadol Continue current regime 07/02/25: Patient reported that he was not able to sleep last night d/t his roommate who snored so loud at night. Because of lacking of sleep, he was not doing well this morning, affected his mood, was irritable and agitated early regarding meds this morning per nursing staff. patient able to feel calmer during assessment. Patient does not think he would be ready for tomorrow discharge follow by TDN signed on Monday. Patient reports that since restarted on meds, patient feels much better but want to make sure he has good safe discharge plan. SW explained to patient how fpc system worked in [place]. Currently [facility] in [place] has no bed available this week. Patient also chooses to have PCP at [facility] to start. Potential to be discharged early next week. D/t insurance issues, there are anticipated some issue coverage with meds. Patient continues to explore more safer discharge plans: will continue to reach out to friends/family for placement. Has been called friends but has not heard from them. 07/03/25: Patient report sleep and appetite are better. Denies side effects. Denies side effects. Patient continue with with treatment team for aftercare plan, calling places and family/friends for better and safer discharge plan: pending results. Possible discharge next week. Patient appears to anxious and depressed. 07/04/25: Meet with patient in art room, reports his roommate snoring loudly again and he could not sleep well. He appears to be depressed and tired but motivate and active on aftercare. Report that he sees himself improved in mood since restart on meds. Patient also met with SW regarding [facility] referrals. Expressed high in anxiety and depression regarding unknown plan yet but denies safety concerns while in the hospital. 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 07/05/25: Meet with patient in room, reports he did not sleep well as roommate was snoring loudly. Reviewed with patient regarding meds sent out to pharmacy. Patient report tramadol low dose is not helpful but understand that will not increased. Patient to FLU with PCP regarding back pain to get referral to get his back check out which is chronic pain. No acute problems. Wait to hear from [facility] and other [facility]pc. Monitor for BP, elevated this morning. 07/06/25: Slept for 6 hours, however complain not able to sleep well because of roommate who snores loudly. Refused medications yesterday morning, blood pressure slightly elevated yesterday. Reports medication are helpful for mood. Feel like he needs more time to figure out safe for discharge plan, asked for now unsure of where he is going. He good like to stay a couple of more days to figure out where he is going. He could stay at his brother house in [place] with this new. Also waiting for fpc bed. Denies safety concerns, anxiety and worries regarding discharge. Per nursing, patient had bowel movement in the bathroom and pushing it down to the drain which has been going on, but today nursing confirmed that it was him. Plan Patient on 15 minute checks for safety. Admitted to [facility]. Restracted TDN on 07/02/25. Continue with current plan. Tentative discharge on Monday07/07/25 once bed available at [facility]. Work with treatment team to do collateral. Discuss with hospitalist regarding medical condition. labs.Testoerone WNL. Reviewed with patient. diagnostic as needed Patient educated on: diagnosis, medication risk/benefits, substance abuse and therapeutic strategies Informed Consent: understands Reason for continued inpatient stay Substantial Risk for: med/psych decompensation Time Spent With Patient Time: Total time managing care of this patient today ____ minutes.
[2025-07-06 19:50] VITALS: BP 132/79; PULSE 68; RESP 15; TEMP 36.8; O2SAT 100
[2025-07-07 08:00] VITALS: BP 137/65; PULSE 83; RESP 16; TEMP 36.5; O2SAT 100
[2025-07-07] MEDS: Brimonidine Tartrate 0.2% Oph 5 ML BOTTLE 1 DROP EYE-BOTH (09:12)
[2025-07-07] MEDS: timoloL maleate 0.5 % Oph Sol 5 ML DRBTL 1 DROP EYE-BOTH (09:12)
[2025-07-07] MEDS: Aspirin Enteric Coated 81 MG TABLET.DR PO (09:14)
[2025-07-07 09:15] VITALS: BP 137/65; PULSE 83
[2025-07-07 09:17] VITALS: BP 137/65; PULSE 100
[2025-07-07] MEDS: Nicotine 7 MG PATCH.TD24 TRANSDERMA (09:21)
--- NOTE | 2025-07-07 10:21 | P.DS_ITS ---
DS: Providers Provider Date of Service: 07/07/25 Date of admission: 06/25/25 14:14 Date of discharge: 07/07/25 Primary care physician: None Physician Admitting clinician: Adelia Sosa Attending physician on admission: Adriano Petersen Consults: 06/25/25 14:53 Consult to Hospitalist Routine Comment: Consulting Provider: [facility] Reason For Exam: New external admit H+P Attending physician on discharge: Adriano Petersen Discharging clinician: Susan Trevino DS: Diagnosis Discharge Diagnosis (1) Narcolepsy: Status: Acute (2) Depressed: Status: Acute (3) PTSD (post-traumatic stress disorder): Status: Acute (4) Panic attack: Status: Acute DS: Medications Discharge Medications Home Medications: Home Medications ?Medication ?Instructions ?Recorded ?Confirmed alprazolam 1 mg tablet (Xanax) See Rx Instructions .Ro werner .COMPLEX 06/25/25 06/25/25 desvenlafaxine succinate 50 mg 50 mg PO DAILY 06/25/25 06/25/25 tablet,extended release 24 hr (Pristiq) gabapentin 300 mg capsule 300 mg PO DAILY 06/25/25 lisdexamfetamine 60 mg capsule 60 mg PO DAILY Narcolep sy 06/25/25 06/25/25 (Vyvanse) timolol 0.25 % eye drops 1 drp ophthalmic (eye) BID 0 06/25/25 06/25/25 Previous Rx's ?Medication ?Instructions ?Recorded alprazolam 0.5 mg tablet 1 mg (2 x 0.5 mg) PO BID PRN panic 07/04/25 attack #60 tabs aspirin 81 mg tablet,delayed 81 mg PO DAILY caridac de sease 07/04/25 release #30 tabs atorvastatin 40 mg tablet 40 mg PO BEDTIME HLD #30 tab s 07/04/25 brimonidine 0.2 % eye drops 1 drp ophthalmic (eye) BID 07/04/25 Glaucoma #5 mL buspirone 10 mg tablet 10 mg PO DAILY@1200,2100 Anx iety 07/04/25 #60 tabs carvedilol 12.5 mg tablet (Coreg) 12.5 mg PO DAILY HTN #30 tabs 07/04/25 cyclobenzaprine 5 mg tablet 5 mg PO TID PRN muscle spa sm-back 07/04/25 #60 tabs methylphenidate HCl 10 mg tablet 20 mg (2 x 10 mg) PO BID@0900,1400 07/04/25 Narcolepsy #120 tabs mirtazapine 15 mg tablet (Remeron) 15 mg PO BEDTIME In somnia #30 tabs 07/04/25 multivitamin (Daily-Elayne tablet) 1 tab PO DAILY supple ment #30 tabs 07/04/25 nicotine (polacrilex) 2 mg gum 2 mg buccal Q2H PRN Carlos otine 07/04/25 Cravings #50 ea nicotine 7 mg/24 hr daily 7 mg transdermal DAILY PRN 1 transdermal patch Nicotine Cravings #14 ea pantoprazole 40 mg tablet,delayed 40 mg PO DAILY GERD #30 tabs 07/04/25 release (Protonix) propranolol 10 mg tablet 10 mg PO BID Anxiety #60 ta bs 07/04/25 sertraline 100 mg tablet 100 mg PO DAILY Depression # 30 tabs 07/04/25 timolol maleate 0.5 % eye drops 1 drp ophthalmic (eye) BID 07/04/25 glaucoma #5 mL tramadol 50 mg tablet 50 mg PO BID PRN Pain, Sever e #30 07/04/25 tabs Mental Status Exam Mental Status Exam Patient Appearance: Appropriate Patient Orientation: Person, Place, Time and Situation Level of Consciousness: Alert Patient Behavior: Talkative and Good Eye Contact Mood Description: Appropriate and Apprehensive Affect Description: Appropriate Patient Cognition Impaired: No Ability to Follow Directions: Good Speech Pattern: Spontaneous Speech Memory Description: Intact Hallucinations: None Delusions: Not Present Thought Process: Intact and Goal Oriented Thought Content: positive for Intact, positive for Goal Oriented and positive for Suicidal Ideation (denies) Depressive Symptoms: Thoughts of /Suicide (denies) Judgement: Good Data Data Completed and Pending Completed studies during hospitalization [Text1]: 06/26/25 11:16 Total Testosterone 302 Fr Testosterone Dialys 68.0 DS: Summary Hospital Course Hospital Course: Admission to adult psychiatry for exacerbation of PTSD, Recurrent Major Depression, Panic Disorder. Hx of Narcolepsy, Glaucoma, HTN, HLD. Pt reports SI upon admission. Identified current stressors as a very recent move to [place] from [place], stopping medications for ~2 weeks prior to admission, the of a co-worker who was a friend ~2 weeks ago and a break up with a girlfriend within the past month. Medications were evaluated and adjusted. Pt was offered full milieu therapy to strengthen coping skills. Aftercare was identified and appointments were scheduled with pt prior to his discharge. Pt will call/return as needed. He is new to the area and supports were identified to assist him in transition. Status at Discharge Functional status at discharge: independent ambulation Overall status at discharge: patient is progressing back to baseline Time Spent with Patient Time attestation: Total time managing care of this patient today ____ minutes. Time spent: Less than 30 minutes Discharge Plan Discharge Anticipated Discharge Date/Time: 07/07/25 14:00 Patient Disposition: [facility] Discharge Diagnosis: Depression, PTSD, Narcolepsy, Panic Attack, Glaucoma Referrals: [facility] [Other] - 07/07/25 3:00 pm [employer] [Other] - 1 Week Referral Note: Case Management: Assistance with basic needs, accessing benefits, recovery coaching, and requests for vital documents. Housing Assistance: Help finding halfway and permanent housing. Substance Use Treatment: Referrals to treatment programs and assistance for those with substance use disorders. Vocational Rehabilitation: Connection to employment programs and services. [facility] [Other] - 1 Week Referral Note: Open Hours Tuesdays 9:00am ? 1:00pm Wednesdays 9:00am ? 1:00pm 9:00am ? 1:00pm Fridays 9:00am ? 1:00pm Saturdays 10:00am ? 1:00pm Therapy/Psych/Case Management: [facility] [Other] - 1 Week Referral Note: Clinical staff at the halfway will be scheduling an intake appointment for therapy, psychiatric prescriber and case management to occur at the halfway within the next week. They will follow up with you at the halfway. PCP: [facility] [Other] - 1 Week Referral Note: You may walk-in and request assistance with changing your insurance plan in order to be seen by their primary care Social Security Office [Other] - 1 Week Referral Note: Open M-F 9am-4pm Department of Transitional Assistance (DTA) Office [Other] - 1 Week Referral Note: M-F 8am-5pm Department of Motor Vehicles ([employer]V) [Other] - 1 Week Referral Note: M-F 8am-6pm Sat 9am-4pm Discharge Medications: New cyclobenzaprine 5 mg Tablet 5 mg PO TID PRN (Reason: muscle spasm-back) Qty: 60 0RF nicotine 7 mg/24 hr Patch 24 Hour 7 mg transdermal DAILY PRN (Reason: Nicotine Cravings) Qty: 14 0RF nicotine (polacrilex) 2 mg Gum 2 mg buccal Q2H PRN (Reason: Nicotine Cravings) Qty: 50 0RF alprazolam 0.5 mg Tablet 1 mg PO BID PRN (Reason: panic attack) Qty: 60 0RF aspirin 81 mg Tablet,Delayed Release (Dr/Ec) 81 mg PO DAILY Qty: 30 0RF buspirone 10 mg Tablet 10 mg PO DAILY@1200,2100 Qty: 60 0RF methylphenidate HCl 10 mg Tablet 20 mg PO BID@0900,1400 Qty: 120 0RF sertraline 100 mg Tablet 100 mg PO DAILY Qty: 30 0RF brimonidine 0.2 % Drops 1 drp ophthalmic (eye) BID Qty: 5 0RF timolol maleate 0.5 % Drops 1 drp ophthalmic (eye) BID Qty: 5 0RF multivitamin [Daily-Elayne] Tablet 1 tab PO DAILY Qty: 30 0RF Continued atorvastatin 40 mg Tablet 40 mg PO BEDTIME Qty: 30 0RF carvedilol [Coreg] 12.5 mg Tablet 12.5 mg PO DAILY Qty: 30 0RF tramadol 50 mg Tablet 50 mg PO BID PRN (Reason: Pain, Severe) Qty: 30 0RF propranolol 10 mg Tablet 10 mg PO BID Qty: 60 0RF pantoprazole [Protonix] 40 mg Tablet,Delayed Release (Dr/Ec) 40 mg PO DAILY Qty: 30 0RF mirtazapine [Remeron] 15 mg Tablet 15 mg PO BEDTIME Qty: 30 0RF Discontinued lisdexamfetamine [Vyvanse] 60 mg Capsule 60 mg PO DAILY alprazolam [Xanax] 1 mg Tablet See Rx Instructions .ROUTE .COMPLEX Rx Instructions: 1 mg orally 13:00 and 21:00 timolol 0.25 % Drops 1 drp OPHTHALMIC (EYE) BID desvenlafaxine succinate [Pristiq] 50 mg Tablet Extended Release 24 Hr 50 mg PO DAILY gabapentin 300 mg Capsule 300 mg PO DAILY Discharge Orders: Discharge Order (Routine); Ordered 07/07/25 Ordered By: Susan Trevino Diet: Regular diet Activity on Discharge: No Restrictions Stand Alone Forms: Patient Portal Discharge page, Community Support Print Language: Icelandic Care Plan Goals: Maintain mood and safe behaviors Take medications as prescribed Continue to pursue sobriety Practice coping skills Continue with outpatient providers and reach out to them as needed Health Concerns: Mood stability and behaviors Sobriety Plan of Treatment: Follow up with your PCP, psychiatric provider and other outpatient providers regarding above concerns Take medications as prescribed Assessment: Assessment: Risk assessment at time of discharge: Patient was interviewed prior to discharge and found to be fully oriented and without any SI or HI. Patient has improved insight and judgment and wants to continue treatment. Patient is not in imminent risk of harm to self or others and has a safety plan that includes presenting to the closest ER or calling 911 if feeling unsafe. Patient has been observed closely by nursing and unit staff throughout admission; patient has not engaged in any behaviors that suggest dangerousness to self or others and has demonstrated appropriate behaviors and impulse control Discharge Date/Time: 07/07/25 14:18
== END 2025-07-07 14:18 | disposition home or self-care (01) | DRG 751 ==
PROVIDERS: Nurse Practitioner Family; Nurse Practitioner Psychiatric/Mental Health; Admitting Provider Psychiatry & Neurology Psychiatry; Visit Provider Clinical Nurse Specialist Psychiatric/Mental Health, Adult
DX: F33.2 Major depressive disorder, recurrent severe without psychotic features (principal); E78.5 Hyperlipidemia, unspecified; F17.210 Nicotine dependence, cigarettes, uncomplicated; H40.9 Unspecified glaucoma; F43.10 Post-traumatic stress disorder, unspecified; F41.0 Panic disorder [episodic paroxysmal anxiety]; G47.419 Narcolepsy without cataplexy; I10 Essential (primary) hypertension; Z71.6 Tobacco abuse counseling; Z59.01 Sheltered homelessness; Z79.82 Long term (current) use of aspirin; Z79.899 Other long term (current) drug therapy
CPT/HCPCS: 36415; 80053; 80061; 83036; 84402; 84403; 84439; 84443

== ENCOUNTER → 2025-06-25 14:14 | Outpatient (BNV) | payer OTHER, SELFPAY | PROVIDERS: Admitting Provider Psychiatry & Neurology Psychiatry; Visit Provider Nurse Practitioner Psychiatric/Mental Health | DX: F32.2 Major depressive disorder, single episode, severe without psychotic features (principal); F43.11 Post-traumatic stress disorder, acute; F41.0 Panic disorder [episodic paroxysmal anxiety]; I10 Essential (primary) hypertension | CPT/HCPCS: 99232 ==

== ENCOUNTER → 2025-06-25 14:14 | Outpatient (BNV) | payer MEDICAID, SELFPAY | PROVIDERS: Admitting Provider Psychiatry & Neurology Psychiatry; Visit Provider Nurse Practitioner Family | DX: H40.9 Unspecified glaucoma (principal); I10 Essential (primary) hypertension; G47.419 Narcolepsy without cataplexy; R79.89 Other specified abnormal findings of blood chemistry | CPT/HCPCS: 99221 ==